=== PATIENT | male | born 1960 | race Two or more races ===

== ENCOUNTER 2020-03-10 13:59 | Inpatient (IN) | payer OTHER ==
[~2020-03-10] VITALS: Ht 170.2 cm; Wt 178.5 kg
[2020-03-10] MEDS ORDERED: ZINC SULFATE 220mg CAP or TAB PO ONE (14:30)
[2020-03-10] MEDS ORDERED: methylPREDNISolone SOD SUCC 125 MG/2 ML VL IV ONE (14:30)
[2020-03-10] MEDS ORDERED: CHOLECALCIFEROL (VITD3) 2,000 UNIT CAP PO ONE (14:30)
[2020-03-10] MEDS ORDERED: ASCORBIC ACID 500 MG TAB PO ONE (14:30)
[2020-03-10 15:16] LABS: Albumin 2.2 g/dL (3.4-5.0); Calcium 7.8 mg/dL (8.5-10.1); Potassium 3.8 mmol/L (3.5-5.1)
[2020-03-10 15:24] LABS: BUN/Creatinine Ratio 15.7; Bilirubin, Total 1.1 mg/dL (0.2-1.0); CRP High Sensitivity 11.7 mg/dL (< 0.3); Total Protein 7.6 g/dL (6.4-8.2)
[2020-03-10 15:35] LABS: Lactic Acid w/Reflex 2.3 mmol/L (0.4-2.0)
[2020-03-10 16:00] LABS: Basophils # (auto) 0 10 ^3/uL (0-0.2); Basophils % (auto) 0.2 % (0.0-2.0); Eosinophils # (auto) 0 10 ^3/uL (0-0.8); Eosinophils % (auto) 0.1 % (0.0-7.0); Hematocrit 44.8 % (41.0-53.0); Hemoglobin 15.1 g/dL (13.5-17.5); Lymphocytes # (auto) 0.8 10 ^3/uL (0.4-5.4); Lymphocytes % (auto) 10.6 % (10.0-50.0); Mean Corpuscular Hemoglobin 30.8 pg (28.0-32.0); Mean Corpuscular Hgb Conc. 33.7 g/dL (32.0-36.0); Mean Corpuscular Volume 91.3 fL (80.0-100.0); Monocytes # (auto) 0.8 10 ^3/uL (0-1.3); Monocytes % (auto) 11.6 % (0.0-12.0); Neutrophils # (auto) 5.6 10 ^3/uL (1.6-8.6); Neutrophils % (auto) 77.5 % (37.0-80.0); Nucleated Red Blood Cells % 0.5 %; Platelet Count (auto) 113 10^3/uL (140-450); Red Blood Cells 4.91 10^6/uL (4.5-5.90); White Blood Cell 7.2 10^3/uL (4.4-10.8)
[2020-03-11] MEDS ORDERED: DEXTROSE (50%) 50ML SYRG IV PRN (02:15)
[2020-03-11] MEDS ORDERED: ONDANSETRON HCL 4 MG/2 ML VIAL IV PRN (02:15)
[2020-03-11] MEDS ORDERED: DOCUSATE SOD 100 MG CAP PO PRN (02:15)
[2020-03-11] MEDS ORDERED: MORPHINE SULF INJ 2 MG/ML SYRINGE 1ML IV PRN (02:15)
[2020-03-11] MEDS ORDERED: ACETAMINOPHEN 325 MG TAB PO PRN (02:15)
[2020-03-11] MEDS ORDERED: NITROGLYCERIN 0.4 MG SL TAB SL PRN (02:15)
[2020-03-11 02:49] LABS: Hematocrit 43.9 % (41.0-53.0); Hemoglobin 14.7 g/dL (13.5-17.5); Mean Corpuscular Hemoglobin 30.6 pg (28.0-32.0); Mean Corpuscular Hgb Conc. 33.5 g/dL (32.0-36.0); Mean Corpuscular Volume 91.1 fL (80.0-100.0); Platelet Count (auto) 123 10^3/uL (140-450); Red Blood Cells 4.82 10^6/uL (4.5-5.90); Red Cell Distribution Width 15.4 % (11.8-14.3); White Blood Cell 4.6 10^3/uL (4.4-10.8)
[2020-03-11] MEDS: DOXYCYCLINE 100MG/250ML 250 ML IV SCH ×2 (02:50→21:43)
[2020-03-11 03:02] LABS: Band Neutrophils % (manual) 0; Basophils % (manual) 0 (0.0-2.0); Blast Cells 0; Eosinophils % (manual) 0 (0-7); Metamyelocytes % 0; Myelocytes % 0; Promyelocytes % 0; Reactive Lymphocytes 0
[2020-03-11 03:06] LABS: Albumin 2.1 g/dL (3.4-5.0); Calcium 7.8 mg/dL (8.5-10.1); Magnesium 2.3 mg/dL (1.6-2.6); Potassium 4.6 mmol/L (3.5-5.1)
[2020-03-11 03:09] LABS: Bilirubin, Total 0.8 mg/dL (0.2-1.0); Total Protein 7.4 g/dL (6.4-8.2)
[2020-03-11 03:42] LABS: Lymphocytes % (manual) 16 (10.0-50.0); Monocytes % (manual) 3 (0-12)
[2020-03-11] MEDS: SODIUM CHLOR 0.9% PF (SALINE LOCK) 10ML VIAL/SYR IV SCH ×3 (06:00→21:43)
[2020-03-11] MEDS: InsuLIN REG 1unit/0.01ml Soln (100units/ml) SC SCH ×4 (07:00→22:17)
[2020-03-11] MEDS: ACCU-CHEK COMFORT CURVE STRIP VI SCH ×4 (07:00→21:44)
[2020-03-11 09:17] LABS: Urine Bacteria FEW /hpf (None Seen); Urine Blood 2+ /uL (Negative); Urine Specific Gravity 1.019 (1.001-1.035); Urine WBC 47 /hpf (0 - 3)
[2020-03-11] MEDS: ASCORBIC ACID 500 MG TAB PO SCH ×2 (10:00→21:43)
[2020-03-11] MEDS ORDERED: ENOXAPARIN SOD 40 MG/0.4 ML SYRINGE SC SCH (10:00)
[2020-03-11] MEDS: FAMOTIDINE 20 MG TAB PO SCH ×2 (10:00→21:43)
[2020-03-11] MEDS: BUDESONIDE (INHALATION) 180 MCG IH IN SCH ×2 (10:00→18:44)
[2020-03-11] MEDS: MULTIPLE VITAMIN TAB PO SCH (10:00)
[2020-03-11] MEDS: ZINC SULFATE 220mg CAP or TAB PO SCH (10:00)
[2020-03-11] MEDS ORDERED: CHOLECALCIFEROL (VITD3) 2,000 UNIT CAP PO SCH (10:00)
[2020-03-11] MEDS: DexAMETHasone SOD PHOS 10MG/1ML VIAL INJ IV SCH (10:55)
[2020-03-11] MEDS ORDERED: REMDESIVIR PER PHARMACY 0 ML IV SCH (18:15)
[2020-03-11] MEDS ORDERED: ERGOCALCIFEROL 50,000 UNIT(1.25MG) CAP PO SCH (18:15)
[2020-03-11] MEDS ORDERED: POTASSIUM CHL 20 Meq TABLET PO ONE (18:15)
[2020-03-11] MEDS ORDERED: FUROSEMIDE 40 MG/4 ML VIAL IV ONE (18:15)
[2020-03-11] MEDS ORDERED: REMDESIVIR 200 MG in NS 210ml LOADING DOSE ADULT IV ONE (20:30)
[2020-03-11] MEDS: ENOXAPARIN SOD 80 MG/0.8ML SYRINGE SC SCH (21:44)
[2020-03-11] MEDS ORDERED: PIPERACILLIN-TAZOB 3.375GM 100 ML IV SCH (22:00)
[2020-03-11] MEDS: HYDROcodone-ACET 5/325MG TAB PO PRN (22:24)
[2020-03-11 23:08] VITALS: BP 118/70
[2020-03-12] VITALS: BP 131/73
[2020-03-12 00:40] VITALS: BP 131/73
[2020-03-12 01:00] VITALS: BP 131/73
[2020-03-12 01:05] VITALS: BP 142/90
[2020-03-12] MEDS: PIPERACILLIN-TAZOB 3.375GM 100 ML IV SCH ×3 (03:00→18:15)
[2020-03-12] MEDS: SODIUM CHLOR 0.9% PF (SALINE LOCK) 10ML VIAL/SYR IV SCH ×3 (06:12→21:21)
[2020-03-12] MEDS: ACCU-CHEK COMFORT CURVE STRIP VI SCH ×4 (06:13→21:26)
[2020-03-12] MEDS: InsuLIN REG 1unit/0.01ml Soln (100units/ml) SC SCH ×4 (06:30→21:19)
[2020-03-12 08:00] VITALS: BP 113/78
[2020-03-12] MEDS: DexAMETHasone SOD PHOS 10MG/1ML VIAL INJ IV SCH (09:59)
[2020-03-12] MEDS: FUROSEMIDE 40 MG/4 ML VIAL IV SCH (10:00)
[2020-03-12] MEDS: BUDESONIDE (INHALATION) 180 MCG IH IN SCH ×2 (10:19→18:55)
[2020-03-12] MEDS: DOXYCYCLINE 100MG/250ML 250 ML IV SCH ×2 (10:37→21:16)
[2020-03-12] MEDS: ZINC SULFATE 220mg CAP or TAB PO SCH (10:37)
[2020-03-12] MEDS: POTASSIUM CHL 20 Meq TABLET PO SCH (10:37)
[2020-03-12] MEDS: FAMOTIDINE 20 MG TAB PO SCH ×2 (10:38→21:04)
[2020-03-12] MEDS: MULTIPLE VITAMIN TAB PO SCH (10:38)
[2020-03-12] MEDS: ENOXAPARIN SOD 80 MG/0.8ML SYRINGE SC SCH ×2 (10:38→21:05)
[2020-03-12] MEDS: ASCORBIC ACID 500 MG TAB PO SCH ×2 (10:38→21:05)
[2020-03-12 11:32] LABS: Basophils # (auto) 0 10 ^3/uL (0-0.2); Eosinophils # (auto) 0 10 ^3/uL (0-0.8); Hematocrit 43.8 % (41.0-53.0); Hemoglobin 14.7 g/dL (13.5-17.5); Lymphocytes # (auto) 0.5 10 ^3/uL (0.4-5.4); Mean Corpuscular Hemoglobin 30.8 pg (28.0-32.0); Mean Corpuscular Hgb Conc. 33.5 g/dL (32.0-36.0); Monocytes # (auto) 0.9 10 ^3/uL (0-1.3); Monocytes % (auto) 9.1 % (0.0-12.0); Neutrophils # (auto) 8.1 10 ^3/uL (1.6-8.6); Neutrophils % (auto) 85.9 % (37.0-80.0); Nucleated Red Blood Cells % 0.3 %; Platelet Count (auto) 144 10^3/uL (140-450); Red Blood Cells 4.76 10^6/uL (4.5-5.90); Red Cell Distribution Width 15.4 % (11.8-14.3); White Blood Cell 9.4 10^3/uL (4.4-10.8)
[2020-03-12 11:49] LABS: Albumin 2.2 g/dL (3.4-5.0); Calcium 7.9 mg/dL (8.5-10.1); Potassium 4.1 mmol/L (3.5-5.1)
[2020-03-12 11:56] LABS: BUN/Creatinine Ratio 24.6; Bilirubin, Total 0.7 mg/dL (0.2-1.0); Total Protein 7.4 g/dL (6.4-8.2)
[2020-03-12] MEDS ORDERED: REMDESIVIR 200 MG in NS 210ml LOADING DOSE ADULT IV ONE (15:00)
[2020-03-12] MEDS ORDERED: REMDESIVIR 100mg 100 MG in SODIUM CHL 0.9% 230 ML IV SCH (15:00)
[2020-03-12 16:00] VITALS: BP 125/76
[2020-03-12] MEDS: ALBUTEROL SULF HFA 90MCG INH 200DOSE IN PRN (20:24)
[2020-03-12] MEDS: HYDROcodone-ACET 5/325MG TAB PO PRN (22:46)
[2020-03-13] VITALS: BP 134/81
[2020-03-13] MEDS: PIPERACILLIN-TAZOB 3.375GM 100 ML IV SCH ×3 (03:51→18:30)
[2020-03-13 05:53] LABS: Basophils # (auto) 0 10 ^3/uL (0-0.2); Basophils % (auto) 0.3 % (0.0-2.0); Eosinophils # (auto) 0 10 ^3/uL (0-0.8); Eosinophils % (auto) 0.1 % (0.0-7.0); Hemoglobin 14.9 g/dL (13.5-17.5); Lymphocytes # (auto) 0.8 10 ^3/uL (0.4-5.4); Lymphocytes % (auto) 11.4 % (10.0-50.0); Mean Corpuscular Hemoglobin 30.6 pg (28.0-32.0); Mean Corpuscular Hgb Conc. 33.1 g/dL (32.0-36.0); Mean Corpuscular Volume 92.4 fL (80.0-100.0); Monocytes # (auto) 0.9 10 ^3/uL (0-1.3); Monocytes % (auto) 12.1 % (0.0-12.0); Neutrophils # (auto) 5.5 10 ^3/uL (1.6-8.6); Neutrophils % (auto) 76.1 % (37.0-80.0); Nucleated Red Blood Cells % 0.2 %; Platelet Count (auto) 143 10^3/uL (140-450); Red Blood Cells 4.88 10^6/uL (4.5-5.90); Red Cell Distribution Width 15.3 % (11.8-14.3); White Blood Cell 7.2 10^3/uL (4.4-10.8)
[2020-03-13] MEDS: InsuLIN REG 1unit/0.01ml Soln (100units/ml) SC SCH ×4 (06:10→22:35)
[2020-03-13] MEDS: SODIUM CHLOR 0.9% PF (SALINE LOCK) 10ML VIAL/SYR IV SCH ×3 (06:11→22:05)
[2020-03-13] MEDS: ACCU-CHEK COMFORT CURVE STRIP VI SCH ×4 (06:12→22:33)
[2020-03-13 06:15] LABS: Albumin 2.1 g/dL (3.4-5.0); Calcium 7.9 mg/dL (8.5-10.1); Potassium 5.5 mmol/L (3.5-5.1)
[2020-03-13 06:19] LABS: Bilirubin, Total 0.6 mg/dL (0.2-1.0); Total Protein 7.7 g/dL (6.4-8.2)
[2020-03-13] MEDS: BUDESONIDE (INHALATION) 180 MCG IH IN SCH ×2 (07:50→18:25)
[2020-03-13] MEDS: ALBUTEROL SULF HFA 90MCG INH 200DOSE IN PRN ×2 (07:50→18:25)
[2020-03-13 08:00] VITALS: BP 120/70
[2020-03-13] MEDS: DexAMETHasone SOD PHOS 10MG/1ML VIAL INJ IV SCH (10:29)
[2020-03-13] MEDS: MULTIPLE VITAMIN TAB PO SCH (10:30)
[2020-03-13] MEDS: FUROSEMIDE 40 MG/4 ML VIAL IV SCH (10:30)
[2020-03-13] MEDS: DOXYCYCLINE 100MG/250ML 250 ML IV SCH ×2 (10:30→22:05)
[2020-03-13] MEDS: POTASSIUM CHL 20 Meq TABLET PO SCH (10:30)
[2020-03-13] MEDS: ZINC SULFATE 220mg CAP or TAB PO SCH (10:30)
[2020-03-13] MEDS: ASCORBIC ACID 500 MG TAB PO SCH ×2 (10:31→22:05)
[2020-03-13] MEDS: ENOXAPARIN SOD 80 MG/0.8ML SYRINGE SC SCH ×2 (10:31→22:06)
[2020-03-13] MEDS: FAMOTIDINE 20 MG TAB PO SCH ×2 (10:31→22:05)
[2020-03-13] MEDS: REMDESIVIR 100mg 100 MG in SODIUM CHL 0.9% 230 ML IV SCH (15:43)
[2020-03-13] MEDS: HYDROcodone-ACET 5/325MG TAB PO PRN (15:57)
[2020-03-13 16:00] VITALS: BP 121/76
[2020-03-13] MEDS: LORazepam 0.5 MG TAB PO PRN (22:09)
[2020-03-14] VITALS: BP 144/91
[2020-03-14] MEDS: PIPERACILLIN-TAZOB 3.375GM 100 ML IV SCH ×3 (03:13→18:44)
[2020-03-14 05:47] LABS: Basophils # (auto) 0 10 ^3/uL (0-0.2); Basophils % (auto) 0.1 % (0.0-2.0); Eosinophils # (auto) 0 10 ^3/uL (0-0.8); Hematocrit 44.7 % (41.0-53.0); Hemoglobin 14.8 g/dL (13.5-17.5); Lymphocytes # (auto) 0.8 10 ^3/uL (0.4-5.4); Lymphocytes % (auto) 12.6 % (10.0-50.0); Mean Corpuscular Hemoglobin 30.4 pg (28.0-32.0); Mean Corpuscular Hgb Conc. 33.2 g/dL (32.0-36.0); Mean Corpuscular Volume 91.5 fL (80.0-100.0); Monocytes # (auto) 0.9 10 ^3/uL (0-1.3); Monocytes % (auto) 14.4 % (0.0-12.0); Neutrophils # (auto) 4.7 10 ^3/uL (1.6-8.6); Neutrophils % (auto) 72.9 % (37.0-80.0); Nucleated Red Blood Cells % 0.2 %; Platelet Count (auto) 153 10^3/uL (140-450); Red Blood Cells 4.88 10^6/uL (4.5-5.90); White Blood Cell 6.4 10^3/uL (4.4-10.8)
[2020-03-14] MEDS: SODIUM CHLOR 0.9% PF (SALINE LOCK) 10ML VIAL/SYR IV SCH ×3 (06:15→21:55)
[2020-03-14 06:19] LABS: Potassium 4.2 mmol/L (3.5-5.1)
[2020-03-14] MEDS: BUDESONIDE (INHALATION) 180 MCG IH IN SCH ×2 (06:33→18:42)
[2020-03-14 06:37] LABS: Albumin 2.3 g/dL (3.4-5.0); BUN/Creatinine Ratio 25.9; Bilirubin, Total 0.9 mg/dL (0.2-1.0); Calcium 7.6 mg/dL (8.5-10.1); Total Protein 7.4 g/dL (6.4-8.2)
[2020-03-14] MEDS: InsuLIN REG 1unit/0.01ml Soln (100units/ml) SC SCH ×4 (06:43→22:14)
[2020-03-14] MEDS: ACCU-CHEK COMFORT CURVE STRIP VI SCH ×4 (06:43→22:04)
[2020-03-14 08:00] VITALS: BP 124/78
[2020-03-14] MEDS: DOXYCYCLINE 100MG/250ML 250 ML IV SCH ×2 (09:56→21:56)
[2020-03-14] MEDS: DexAMETHasone SOD PHOS 10MG/1ML VIAL INJ IV SCH (09:56)
[2020-03-14] MEDS: FUROSEMIDE 40 MG/4 ML VIAL IV SCH (09:56)
[2020-03-14] MEDS: ASCORBIC ACID 500 MG TAB PO SCH ×2 (09:57→21:55)
[2020-03-14] MEDS: ENOXAPARIN SOD 80 MG/0.8ML SYRINGE SC SCH ×2 (09:57→21:55)
[2020-03-14] MEDS: ZINC SULFATE 220mg CAP or TAB PO SCH (09:57)
[2020-03-14] MEDS: MULTIPLE VITAMIN TAB PO SCH (09:57)
[2020-03-14] MEDS: FAMOTIDINE 20 MG TAB PO SCH ×2 (12:30→21:55)
[2020-03-14] MEDS: SALINE 0.65 % NASAL SPRAY 45ML BOTTLE EACHNOSTRI SCH ×3 (14:29→21:55)
[2020-03-14 16:00] VITALS: BP 123/75
[2020-03-14] MEDS: REMDESIVIR 100mg 100 MG in SODIUM CHL 0.9% 230 ML IV SCH (16:17)
[2020-03-14] MEDS: ALBUTEROL SULF HFA 90MCG INH 200DOSE IN PRN (18:42)
[2020-03-14] MEDS: ZOLPIDEM TARTRATE 5 MG TAB PO PRN (21:55)
[2020-03-15] VITALS: BP 154/79
[2020-03-15] MEDS: PIPERACILLIN-TAZOB 3.375GM 100 ML IV SCH (03:38)
[2020-03-15] MEDS: SODIUM CHLOR 0.9% PF (SALINE LOCK) 10ML VIAL/SYR IV SCH ×3 (06:12→21:14)
[2020-03-15] MEDS: ACCU-CHEK COMFORT CURVE STRIP VI SCH ×4 (06:12→21:14)
[2020-03-15] MEDS: SALINE 0.65 % NASAL SPRAY 45ML BOTTLE EACHNOSTRI SCH ×4 (06:12→21:13)
[2020-03-15] MEDS: InsuLIN REG 1unit/0.01ml Soln (100units/ml) SC SCH ×5 (06:13→21:24)
[2020-03-15] MEDS: ALBUTEROL SULF HFA 90MCG INH 200DOSE IN PRN ×2 (07:10→18:52)
[2020-03-15] MEDS: BUDESONIDE (INHALATION) 180 MCG IH IN SCH ×2 (07:10→18:52)
[2020-03-15 08:00] VITALS: BP 138/80
[2020-03-15 09:00] LABS: Basophils # (auto) 0 10 ^3/uL (0-0.2); Basophils % (auto) 0.4 % (0.0-2.0); Eosinophils # (auto) 0 10 ^3/uL (0-0.8); Hematocrit 45.8 % (41.0-53.0); Hemoglobin 15.2 g/dL (13.5-17.5); Lymphocytes # (auto) 0.9 10 ^3/uL (0.4-5.4); Lymphocytes % (auto) 13.3 % (10.0-50.0); Mean Corpuscular Hemoglobin 30.5 pg (28.0-32.0); Mean Corpuscular Hgb Conc. 33.2 g/dL (32.0-36.0); Monocytes # (auto) 0.8 10 ^3/uL (0-1.3); Monocytes % (auto) 12.3 % (0.0-12.0); Nucleated Red Blood Cells % 0.2 %; Platelet Count (auto) 142 10^3/uL (140-450); Red Blood Cells 4.98 10^6/uL (4.5-5.90); Red Cell Distribution Width 15.4 % (11.8-14.3); White Blood Cell 6.8 10^3/uL (4.4-10.8)
[2020-03-15 09:19] LABS: Albumin 2.2 g/dL (3.4-5.0); Calcium 7.8 mg/dL (8.5-10.1)
[2020-03-15 09:28] LABS: BUN/Creatinine Ratio 23.9; Bilirubin, Total 0.9 mg/dL (0.2-1.0); CRP High Sensitivity 1.68 mg/dL (< 0.3); Total Protein 7.4 g/dL (6.4-8.2)
[2020-03-15] MEDS: FAMOTIDINE 20 MG TAB PO SCH ×2 (10:00→21:14)
[2020-03-15] MEDS: ZINC SULFATE 220mg CAP or TAB PO SCH (10:23)
[2020-03-15] MEDS: FUROSEMIDE 40 MG/4 ML VIAL IV SCH (10:23)
[2020-03-15] MEDS: DOXYCYCLINE 100MG/250ML 250 ML IV SCH (10:23)
[2020-03-15] MEDS: DexAMETHasone SOD PHOS 10MG/1ML VIAL INJ IV SCH (10:23)
[2020-03-15] MEDS: ASCORBIC ACID 500 MG TAB PO SCH ×2 (10:24→21:13)
[2020-03-15] MEDS: ENOXAPARIN SOD 80 MG/0.8ML SYRINGE SC SCH ×2 (10:24→21:12)
[2020-03-15] MEDS: MULTIPLE VITAMIN TAB PO SCH (10:24)
[2020-03-15] MEDS: REMDESIVIR 100mg 100 MG in SODIUM CHL 0.9% 230 ML IV SCH (15:34)
[2020-03-15 16:00] VITALS: BP 123/77
[2020-03-15] MEDS: ZOLPIDEM TARTRATE 5 MG TAB PO PRN (21:13)
[2020-03-15] MEDS: DOXYCYCLINE 100 MG TAB/CAP PO SCH (21:14)
[2020-03-15] MEDS ORDERED: AMOXICILLIN/CLAVUL 875 MG TAB PO SCH (22:00)
[2020-03-16] VITALS: BP 134/75
[2020-03-16] MEDS: SODIUM CHLOR 0.9% PF (SALINE LOCK) 10ML VIAL/SYR IV SCH ×3 (06:05→21:49)
[2020-03-16] MEDS: SALINE 0.65 % NASAL SPRAY 45ML BOTTLE EACHNOSTRI SCH ×4 (06:05→21:49)
[2020-03-16] MEDS: ACCU-CHEK COMFORT CURVE STRIP VI SCH ×4 (06:05→21:50)
[2020-03-16] MEDS: BUDESONIDE (INHALATION) 180 MCG IH IN SCH ×2 (06:44→22:34)
[2020-03-16] MEDS: ALBUTEROL SULF HFA 90MCG INH 200DOSE IN PRN ×2 (06:44→22:34)
[2020-03-16 07:10] LABS: Basophils # (auto) 0 10 ^3/uL (0-0.2); Basophils % (auto) 0.4 % (0.0-2.0); Eosinophils # (auto) 0 10 ^3/uL (0-0.8); Lymphocytes # (auto) 0.9 10 ^3/uL (0.4-5.4); Lymphocytes % (auto) 11.8 % (10.0-50.0); Mean Corpuscular Hemoglobin 30.9 pg (28.0-32.0); Mean Corpuscular Volume 90.9 fL (80.0-100.0); Monocytes # (auto) 0.8 10 ^3/uL (0-1.3); Monocytes % (auto) 9.8 % (0.0-12.0); Neutrophils # (auto) 6.2 10 ^3/uL (1.6-8.6); Nucleated Red Blood Cells % 0.1 %; Platelet Count (auto) 140 10^3/uL (140-450); Red Blood Cells 4.85 10^6/uL (4.5-5.90); Red Cell Distribution Width 15.1 % (11.8-14.3); White Blood Cell 7.9 10^3/uL (4.4-10.8)
[2020-03-16 07:31] LABS: Potassium 4.1 mmol/L (3.5-5.1)
[2020-03-16 07:40] LABS: Albumin 2.3 g/dL (3.4-5.0); BUN/Creatinine Ratio 28.7; Bilirubin, Total 0.7 mg/dL (0.2-1.0); Calcium 7.8 mg/dL (8.5-10.1)
[2020-03-16 08:00] VITALS: BP 119/79
[2020-03-16] MEDS: DexAMETHasone SOD PHOS 10MG/1ML VIAL INJ IV SCH (09:14)
[2020-03-16] MEDS: MULTIPLE VITAMIN TAB PO SCH (09:15)
[2020-03-16] MEDS: ZINC SULFATE 220mg CAP or TAB PO SCH (09:15)
[2020-03-16] MEDS: FUROSEMIDE 40 MG/4 ML VIAL IV SCH (09:15)
[2020-03-16] MEDS: FAMOTIDINE 20 MG TAB PO SCH ×2 (09:15→21:49)
[2020-03-16] MEDS: ASCORBIC ACID 500 MG TAB PO SCH ×2 (09:16→21:49)
[2020-03-16] MEDS: ENOXAPARIN SOD 80 MG/0.8ML SYRINGE SC SCH ×2 (09:16→21:50)
[2020-03-16] MEDS: DOXYCYCLINE 100 MG TAB/CAP PO SCH ×2 (09:16→21:49)
[2020-03-16] MEDS: InsuLIN REG 1unit/0.01ml Soln (100units/ml) SC SCH ×3 (11:27→22:04)
[2020-03-16 15:00] VITALS: BP 127/70
[2020-03-16] MEDS: REMDESIVIR 100mg 100 MG in SODIUM CHL 0.9% 230 ML IV SCH (15:00)
[2020-03-16 15:15] VITALS: BP 103/58
[2020-03-16 16:00] VITALS: BP 102/74
[2020-03-16] MEDS: ZOLPIDEM TARTRATE 5 MG TAB PO PRN (22:01)
[2020-03-17] VITALS: BP 111/58
[2020-03-17] MEDS: SODIUM CHLOR 0.9% PF (SALINE LOCK) 10ML VIAL/SYR IV SCH ×3 (06:00→21:39)
[2020-03-17] MEDS: SALINE 0.65 % NASAL SPRAY 45ML BOTTLE EACHNOSTRI SCH ×4 (06:00→21:39)
[2020-03-17] MEDS: BUDESONIDE (INHALATION) 180 MCG IH IN SCH ×2 (06:26→21:37)
[2020-03-17] MEDS: ALBUTEROL SULF HFA 90MCG INH 200DOSE IN PRN ×2 (06:26→21:37)
[2020-03-17] MEDS: ACCU-CHEK COMFORT CURVE STRIP VI SCH ×4 (06:53→21:39)
[2020-03-17 06:54] LABS: Basophils # (auto) 0 10 ^3/uL (0-0.2); Basophils % (auto) 0.1 % (0.0-2.0); Eosinophils # (auto) 0 10 ^3/uL (0-0.8); Eosinophils % (auto) 0.1 % (0.0-7.0); Hematocrit 44.4 % (41.0-53.0); Hemoglobin 14.9 g/dL (13.5-17.5); Lymphocytes # (auto) 0.9 10 ^3/uL (0.4-5.4); Mean Corpuscular Hemoglobin 30.6 pg (28.0-32.0); Mean Corpuscular Hgb Conc. 33.5 g/dL (32.0-36.0); Mean Corpuscular Volume 91.2 fL (80.0-100.0); Monocytes # (auto) 0.9 10 ^3/uL (0-1.3); Monocytes % (auto) 11.2 % (0.0-12.0); Neutrophils # (auto) 6.5 10 ^3/uL (1.6-8.6); Neutrophils % (auto) 77.6 % (37.0-80.0); Nucleated Red Blood Cells % 0.1 %; Platelet Count (auto) 137 10^3/uL (140-450); Red Blood Cells 4.87 10^6/uL (4.5-5.90); Red Cell Distribution Width 14.8 % (11.8-14.3); White Blood Cell 8.4 10^3/uL (4.4-10.8)
[2020-03-17] MEDS: InsuLIN REG 1unit/0.01ml Soln (100units/ml) SC SCH ×4 (06:54→22:07)
[2020-03-17 07:58] VITALS: BP 114/72
[2020-03-17] MEDS: ASCORBIC ACID 500 MG TAB PO SCH ×2 (09:50→21:39)
[2020-03-17] MEDS: MULTIPLE VITAMIN TAB PO SCH (09:50)
[2020-03-17] MEDS: ZINC SULFATE 220mg CAP or TAB PO SCH (09:50)
[2020-03-17] MEDS: DOXYCYCLINE 100 MG TAB/CAP PO SCH ×2 (09:50→21:39)
[2020-03-17] MEDS: ENOXAPARIN SOD 80 MG/0.8ML SYRINGE SC SCH ×2 (09:51→21:40)
[2020-03-17] MEDS: DexAMETHasone SOD PHOS 10MG/1ML VIAL INJ IV SCH (09:51)
[2020-03-17] MEDS: FAMOTIDINE 20 MG TAB PO SCH ×2 (09:51→21:39)
[2020-03-17] MEDS: FUROSEMIDE 40 MG/4 ML VIAL IV SCH (09:51)
[2020-03-17 15:53] VITALS: BP 114/67
[2020-03-17] MEDS: LORazepam 0.5 MG TAB PO PRN (21:40)
[2020-03-18] VITALS: BP 127/60
[2020-03-18] MEDS: InsuLIN REG 1unit/0.01ml Soln (100units/ml) SC SCH ×3 (05:54→16:43)
[2020-03-18 06:00] VITALS: BP 109/46
[2020-03-18] MEDS: SALINE 0.65 % NASAL SPRAY 45ML BOTTLE EACHNOSTRI SCH ×3 (06:09→17:20)
[2020-03-18] MEDS: SODIUM CHLOR 0.9% PF (SALINE LOCK) 10ML VIAL/SYR IV SCH ×2 (06:09→13:41)
[2020-03-18] MEDS: ACCU-CHEK COMFORT CURVE STRIP VI SCH ×3 (06:09→16:41)
[2020-03-18 06:20] LABS: Basophils # (auto) 0 10 ^3/uL (0-0.2); Basophils % (auto) 0.2 % (0.0-2.0); Eosinophils # (auto) 0 10 ^3/uL (0-0.8); Eosinophils % (auto) 0.1 % (0.0-7.0); Lymphocytes # (auto) 0.7 10 ^3/uL (0.4-5.4); Lymphocytes % (auto) 9.4 % (10.0-50.0); Mean Corpuscular Hemoglobin 30.4 pg (28.0-32.0); Mean Corpuscular Hgb Conc. 33.2 g/dL (32.0-36.0); Mean Corpuscular Volume 91.4 fL (80.0-100.0); Monocytes # (auto) 0.7 10 ^3/uL (0-1.3); Monocytes % (auto) 10.1 % (0.0-12.0); Neutrophils # (auto) 5.9 10 ^3/uL (1.6-8.6); Neutrophils % (auto) 80.2 % (37.0-80.0); Nucleated Red Blood Cells % 0.1 %; Platelet Count (auto) 122 10^3/uL (140-450); Red Blood Cells 4.92 10^6/uL (4.5-5.90); Red Cell Distribution Width 15.4 % (11.8-14.3); White Blood Cell 7.3 10^3/uL (4.4-10.8)
[2020-03-18 08:00] VITALS: BP 109/46
[2020-03-18] MEDS: ASCORBIC ACID 500 MG TAB PO SCH (09:28)
[2020-03-18] MEDS: MULTIPLE VITAMIN TAB PO SCH (09:28)
[2020-03-18] MEDS: DOXYCYCLINE 100 MG TAB/CAP PO SCH (09:28)
[2020-03-18] MEDS: ZINC SULFATE 220mg CAP or TAB PO SCH (09:28)
[2020-03-18] MEDS: FUROSEMIDE 40 MG/4 ML VIAL IV SCH (09:29)
[2020-03-18] MEDS: FAMOTIDINE 20 MG TAB PO SCH (09:29)
[2020-03-18] MEDS: ENOXAPARIN SOD 80 MG/0.8ML SYRINGE SC SCH (09:29)
[2020-03-18] MEDS: DexAMETHasone SOD PHOS 10MG/1ML VIAL INJ IV SCH (09:29)
[2020-03-18] MEDS: ALBUTEROL SULF HFA 90MCG INH 200DOSE IN PRN (10:25)
[2020-03-18] MEDS: BUDESONIDE (INHALATION) 180 MCG IH IN SCH (10:25)
[2020-03-18 14:17] VITALS: BP 109/46
[2020-03-18 16:00] VITALS: BP 116/71
== END 2020-03-18 17:55 | disposition home or self-care (01) | DRG 871 ==
LOC: EDBD 13:59 → ER 13:59 → TELE 14:00 → TELE-EAST 03-11 23:57
PROVIDERS: ADMIT Nurse Practitioner Family; ATTEND Internal Medicine Nephrology
PROC: XW13325 Transfusion of Convalescent Plasma (Nonautologous) into Peripheral Vein, Percutaneous Approach, New Technology Group 5 (ICD-10-PCS; principal; 2020-03-11)
PROC: XW033E5 Introduction of Remdesivir Anti-infective into Peripheral Vein, Percutaneous Approach, New Technology Group 5 (ICD-10-PCS; 2020-03-11)
DX: A41.89 Other specified sepsis (principal); J12.82 Pneumonia due to coronavirus disease 2019; J96.01 Acute respiratory failure with hypoxia; U07.1 COVID-19; Z68.44 Body mass index [BMI] 60.0-69.9, adult; D69.6 Thrombocytopenia, unspecified; E11.22 Type 2 diabetes mellitus with diabetic chronic kidney disease; E66.01 Morbid (severe) obesity due to excess calories; E87.5 Hyperkalemia; F17.210 Nicotine dependence, cigarettes, uncomplicated; F41.9 Anxiety disorder, unspecified; I12.9 Hypertensive chronic kidney disease with stage 1 through stage 4 chronic kidney disease, or unspecified chronic kidney disease; N18.2 Chronic kidney disease, stage 2 (mild); R65.20 Severe sepsis without septic shock
CPT/HCPCS: 36415; 36600; 71045; 80053; 81001; 82306; 82728; 82805; 82962; 83036; 83605; 83615; 83735; 83880; 85007; 85025; 85027; 85379; 86141; 86850; 86900; 86901; 87040; 87426; 93005; 93970; 94640; 96374; 99291; G0378; J1100; J1815; J2543; J3490

== ENCOUNTER 2020-12-08 17:08 | Emergency (ER) | payer OTHER ==
[~2020-12-08] VITALS: Ht 177.8 cm; Wt 172.4 kg
[2020-12-08 17:45] VITALS: BP 165/88
== END 2020-12-08 18:59 | disposition home or self-care (01) ==
LOC: ER 17:08
DX: L03.116 Cellulitis of left lower limb (principal); E11.9 Type 2 diabetes mellitus without complications; F17.210 Nicotine dependence, cigarettes, uncomplicated
CPT/HCPCS: 73700

== ENCOUNTER 2021-01-19 21:24 | Emergency (ER) | payer OTHER ==
[~2021-01-19] VITALS: Ht 177.8 cm; Wt 170.1 kg
[2021-01-19] MEDS ORDERED: LIDOCAINE 2% (LOCAL ANESTH.) PF 5ml SDV IJ ONE (23:45)
[2021-01-19] MEDS ORDERED: cefTRIAXone SOD 1,000 MG VL IM ONE (23:45)
[2021-01-19] MEDS ORDERED: NEOMYCIN-BACITRACIN-POLYM UNITDOSE PKG TOP OINT TOP ONE (23:45)
[2021-01-19] MEDS ORDERED: TETANUS-DIPTH-ACEL PERTUSSIS 0.5ML SYR Tdap IM ONE (23:45)
[2021-01-20] MEDS ORDERED: MORPHINE SULFATE 4 MG/ML SYR/VIAL IV ONE (00:15)
[2021-01-20] MEDS ORDERED: cefTRIAXone 1GM/50ML D5W 50 ML IV ONE ×2 (00:15→01:15)
[2021-01-20] MEDS ORDERED: NEOMYCIN-BACITRACIN-POLYM UNITDOSE PKG TOP OINT TOP ONE (01:00)
[2021-01-20 01:52] VITALS: BP 173/82
== END 2021-01-20 02:50 | disposition home or self-care (01) ==
LOC: EDBD 21:24 → ER 21:24
DX: S81.812A Laceration without foreign body, left lower leg, initial encounter (principal); E66.9 Obesity, unspecified; Z68.43 Body mass index [BMI] 50.0-59.9, adult; E11.9 Type 2 diabetes mellitus without complications; F17.210 Nicotine dependence, cigarettes, uncomplicated; W26.8XXA Contact with other sharp object(s), not elsewhere classified, initial encounter; Y93.89 Activity, other specified; Y92.89 Other specified places as the place of occurrence of the external cause; Y99.8 Other external cause status
CPT/HCPCS: 12005; 90471; 90715; 96365; 96375; 99284; J0696; J2270

== ENCOUNTER → 2021-10-26 | Outpatient (CLI) | payer MEDICAID ==
[~2021-10-26] MED LIST: ALBUTEROL SULF 2.5 MG/0.5ML(0.5%) NEB SOLN ONE; SODIUM CHLORIDE 0.9 % NEB SOLN 3ML NEB ONE
== END | disposition home or self-care (01) ==
LOC: RT 10:44
PROVIDERS: ATTEND Internal Medicine Pulmonary Disease
DX: J44.9 Chronic obstructive pulmonary disease, unspecified (principal)
CPT/HCPCS: 94060; 94727; 94729

== ENCOUNTER 2022-01-15 05:35 | Inpatient (IN) | payer MEDICAID ==
[~2022-01-15] VITALS: Ht 172.7 cm; Wt 172.5 kg
[2022-01-15] MEDS ORDERED: ADENOSINE 6 MG/2 ML INJ IV ONE ×2 (06:17→06:30)
[2022-01-15 07:08] LABS: Basophils # (auto) 0.1 10 ^3/uL (0-0.2); Basophils % (auto) 1.2 % (0.0-2.0); White Blood Cell 11.3 10^3/uL (4.4-10.8)
[2022-01-15 07:09] LABS: Eosinophils # (auto) 0.1 10 ^3/uL (0-0.8); Hematocrit 26.9 % (41.0-53.0); Lymphocytes # (auto) 1.6 10 ^3/uL (0.4-5.4); Lymphocytes % (auto) 13.7 % (10.0-50.0); Mean Corpuscular Hemoglobin 20.4 pg (28.0-32.0); Mean Corpuscular Hgb Conc. 29.9 g/dL (32.0-36.0); Mean Corpuscular Volume 68.2 fL (80.0-100.0); Monocytes # (auto) 1.5 10 ^3/uL (0-1.3); Monocytes % (auto) 12.8 % (0.0-12.0); Neutrophils # (auto) 8.1 10 ^3/uL (1.6-8.6); Neutrophils % (auto) 71.3 % (37.0-80.0); Nucleated Red Blood Cells % 0.5 %; Red Blood Cells 3.94 10^6/uL (4.5-5.90)
[2022-01-15 07:14] LABS: Red Cell Distribution Width 20.9 % (11.8-14.3)
[2022-01-15 07:45] LABS: Potassium 4.4 mmol/L (3.5-5.1)
[2022-01-15 07:53] LABS: Albumin 2.3 g/dL (3.4-5.0); Bilirubin, Total 1.5 mg/dL (0.2-1.0); Calcium 8.1 mg/dL (8.5-10.1); Magnesium 1.7 mg/dL (1.6-2.6); Total Protein 7.2 g/dL (6.4-8.2)
[2022-01-15] MEDS ORDERED: ASPirin 81 mg TAB PO ONE (08:00)
[2022-01-15] MEDS ORDERED: MORPHINE SULFATE INJ 2 MG/ml SYRG IV PRN (09:00)
[2022-01-15] MEDS ORDERED: NITROGLYCERIN 0.4 MG SL TAB SL PRN (09:00)
[2022-01-15] MEDS ORDERED: NITROGLYCERIN 0.4MG/HR TOPICAL PATCH TD ONE (09:15)
[2022-01-15] MEDS ORDERED: cefTRIAXone 1GM/50ML D5W 50 ML IV ONE (09:30)
[2022-01-15] MEDS ORDERED: DEXTROSE (50%) 50ML SYRG IV PRN (09:30)
[2022-01-15 09:57] LABS: Cholesterol 79 mg/dL (< 200); HDL Cholesterol 33 mg/dL (40-59); LDL Cholesterol 43 mg/dL (< 100); Triglycerides 82 mg/dL (< 150)
[2022-01-15] MEDS ORDERED: FUROSEMIDE 20 MG/2 ML VIAL IV SCH (10:00)
[2022-01-15] MEDS ORDERED: ENOXAPARIN SOD 150 MG/1 ML SYRINGE SC SCH (10:00)
[2022-01-15] MEDS: FUROSEMIDE 20 MG/2 ML VIAL IV SCH ×2 (10:21→18:49)
[2022-01-15 10:56] LABS: Urine Bacteria NONE SEEN /hpf (None Seen); Urine Blood 1+ /uL (Negative); Urine Hyaline Cast FEW /lpf (0 - 2); Urine Mucus FEW (None Seen); Urine Specific Gravity 1.013 (1.001-1.035); Urine WBC 3 /hpf (0 - 3)
[2022-01-15] MEDS: ACCU-CHEK COMFORT CURVE STRIP VI SCH ×3 (12:05→23:23)
[2022-01-15] MEDS: InsuLIN REG 1unit/0.01ml Soln (100units/ml) SC SCH ×3 (12:05→23:23)
[2022-01-15] MEDS: CLINDAMYCIN 600MG IV 50 ML IV SCH ×2 (14:49→23:22)
[2022-01-15] MEDS ORDERED: HEPARIN SODIUM (PORCINE) 5000 UNITS/ML 1ML VIAL IV ONE (15:30)
[2022-01-15] MEDS: METOPROLOL TARTRATE 25 MG TAB PO SCH ×2 (16:01→23:22)
[2022-01-15] MEDS: NITROGLYCERIN 0.4MG/HR TOPICAL PATCH TD SCH (16:33)
[2022-01-15 16:52] LABS: Basophils # (auto) 0.1 10 ^3/uL (0-0.2); Basophils % (auto) 0.9 % (0.0-2.0); Eosinophils # (auto) 0.1 10 ^3/uL (0-0.8); Hemoglobin 7.5 g/dL (13.5-17.5); Lymphocytes # (auto) 1.4 10 ^3/uL (0.4-5.4); Mean Corpuscular Hemoglobin 19.9 pg (28.0-32.0); Neutrophils # (auto) 8.5 10 ^3/uL (1.6-8.6); Red Blood Cells 3.75 10^6/uL (4.5-5.90)
[2022-01-15 16:54] LABS: Eosinophils % (auto) 0.5 % (0.0-7.0); Hematocrit 25.5 % (41.0-53.0); Lymphocytes % (auto) 11.6 % (10.0-50.0); Mean Corpuscular Hgb Conc. 29.3 g/dL (32.0-36.0); Monocytes % (auto) 16.3 % (0.0-12.0); Neutrophils % (auto) 70.7 % (37.0-80.0); Nucleated Red Blood Cells % 0.3 %
[2022-01-15 16:55] LABS: Red Cell Distribution Width 20.5 % (11.8-14.3)
[2022-01-15 17:28] LABS: INR 1.33 (0.9-1.15); Partial Thromboplastin Time 35.3 sec (24.6-33.4)
[2022-01-15] MEDS ORDERED: HEPARIN DRIP/D5W 100UNITS/ML 250 ML IV SCH (22:00)
[2022-01-15] MEDS ORDERED: ATORVASTATIN 20 MG TAB PO SCH (22:00)
[2022-01-16 03:39] LABS: Basophils # (auto) 0.1 10 ^3/uL (0-0.2); Eosinophils # (auto) 0.3 10 ^3/uL (0-0.8); Mean Corpuscular Volume 67.3 fL (80.0-100.0); Monocytes # (auto) 2.2 10 ^3/uL (0-1.3); Nucleated Red Blood Cells % 0.2 %
[2022-01-16 03:41] LABS: Eosinophils % (auto) 2.4 % (0.0-7.0); Hematocrit 25.9 % (41.0-53.0); Hemoglobin 7.7 g/dL (13.5-17.5); Lymphocytes # (auto) 2.2 10 ^3/uL (0.4-5.4); Lymphocytes % (auto) 18.3 % (10.0-50.0); Mean Corpuscular Hgb Conc. 29.8 g/dL (32.0-36.0); Neutrophils # (auto) 7.4 10 ^3/uL (1.6-8.6); Neutrophils % (auto) 60.2 % (37.0-80.0); Red Blood Cells 3.84 10^6/uL (4.5-5.90); White Blood Cell 12.3 10^3/uL (4.4-10.8)
[2022-01-16 03:50] LABS: Monocytes % (auto) 18.1 % (0.0-12.0); Red Cell Distribution Width 20.7 % (11.8-14.3)
[2022-01-16 03:57] LABS: Albumin 2.1 g/dL (3.4-5.0); BUN/Creatinine Ratio 11.2; Calcium 7.6 mg/dL (8.5-10.1); Potassium 3.5 mmol/L (3.5-5.1)
[2022-01-16 04:00] LABS: Total Protein 6.8 g/dL (6.4-8.2)
[2022-01-16 04:27] LABS: INR 1.03 (0.9-1.15)
[2022-01-16 04:36] LABS: Partial Thromboplastin Time > 139.0 sec (24.6-33.4)
[2022-01-16] MEDS ORDERED: HEPARIN DRIP/D5W 100UNITS/ML 250 ML IV SCH (06:00)
[2022-01-16] MEDS: CLINDAMYCIN 600MG IV 50 ML IV SCH (06:43)
[2022-01-16] MEDS: FUROSEMIDE 20 MG/2 ML VIAL IV SCH ×2 (06:43→18:14)
[2022-01-16] MEDS: ACCU-CHEK COMFORT CURVE STRIP VI SCH ×3 (06:49→17:23)
[2022-01-16] MEDS: InsuLIN REG 1unit/0.01ml Soln (100units/ml) SC SCH ×3 (06:49→17:00)
[2022-01-16] MEDS ORDERED: cefTRIAXone 1GM/50ML D5W 50 ML IV SCH (09:00)
[2022-01-16] MEDS: METOPROLOL TARTRATE 25 MG TAB PO SCH (09:53)
[2022-01-16] MEDS ORDERED: ASPirin 81 mg TAB PO SCH (10:00)
[2022-01-16] MEDS: NITROGLYCERIN 0.4MG/HR TOPICAL PATCH TD SCH (10:26)
[2022-01-16 12:30] LABS: INR 1.3 (0.9-1.15); Partial Thromboplastin Time 35.7 sec (24.6-33.4)
[2022-01-16 20:20] VITALS: BP 110/77
[2022-01-16] MEDS ORDERED: ENOXAPARIN SOD 150 MG/1 ML SYRINGE SC SCH (22:00)
== END 2022-01-16 20:26 | disposition short-term general hospital (02) | DRG 720 ==
LOC: ER 05:35 → TELE 09:02
PROVIDERS: ADMIT Registered Nurse; ATTEND Nurse Practitioner Acute Care
DX: A41.9 Sepsis, unspecified organism (principal); I21.4 Non-ST elevation (NSTEMI) myocardial infarction; E43 Unspecified severe protein-calorie malnutrition; I13.0 Hypertensive heart and chronic kidney disease with heart failure and stage 1 through stage 4 chronic kidney disease, or unspecified chronic kidney disease; I50.9 Heart failure, unspecified; I47.1 Supraventricular tachycardia; E11.22 Type 2 diabetes mellitus with diabetic chronic kidney disease; D64.9 Anemia, unspecified; Z68.43 Body mass index [BMI] 50.0-59.9, adult; L97.509 Non-pressure chronic ulcer of other part of unspecified foot with unspecified severity; D72.829 Elevated white blood cell count, unspecified; E11.51 Type 2 diabetes mellitus with diabetic peripheral angiopathy without gangrene; E66.01 Morbid (severe) obesity due to excess calories; Z20.822 Contact with and (suspected) exposure to COVID-19; E11.621 Type 2 diabetes mellitus with foot ulcer; E78.5 Hyperlipidemia, unspecified; N18.9 Chronic kidney disease, unspecified; I87.8 Other specified disorders of veins
CPT/HCPCS: 36415; 71045; 80053; 80061; 81001; 82962; 83036; 83735; 83880; 84443; 84484; 85025; 85379; 85610; 85730; 86850; 86900; 86901; 87040; 87077; 87186; 87205; 87426; 93005; 93306; 93925; 93970; 96365; 96367; 96372; 96375; 99291; G0378; J0153; J0696; J3490

== ENCOUNTER → 2022-05-29 | Outpatient (CLI) | payer MEDICAID | END | disposition home or self-care (01) | LOC: Rad HDHVI 09:00 | PROVIDERS: ATTEND Internal Medicine | DX: I11.9 Hypertensive heart disease without heart failure (principal); E78.5 Hyperlipidemia, unspecified | CPT/HCPCS: 93306 ==

== ENCOUNTER 2022-09-30 00:23 | Emergency (ER) | payer MEDICAID ==
[~2022-09-30] VITALS: Ht 175.3 cm; Wt 145.0 kg
[2022-09-30 00:26] VITALS: BP 122/68; PULSE 111; RESP 18; O2SAT 97
== END 2022-09-30 07:19 | disposition home or self-care (01) ==
LOC: ER 00:23
DX: F10.129 Alcohol abuse with intoxication, unspecified (principal); E66.9 Obesity, unspecified; I10 Essential (primary) hypertension; E11.9 Type 2 diabetes mellitus without complications; E78.5 Hyperlipidemia, unspecified; Z68.42 Body mass index [BMI] 45.0-49.9, adult; Y90.9 Presence of alcohol in blood, level not specified

== ENCOUNTER 2022-10-01 19:12 | Emergency (ER) | payer MEDICAID ==
[~2022-10-01] VITALS: Ht 177.8 cm; Wt 127.0 kg
[2022-10-01] MEDS ORDERED: ASPirin 81 mg TAB PO ONE (19:30)
[2022-10-01 19:41] LABS: Basophils # (auto) 0.1 10 ^3/uL (0-0.2); Basophils % (auto) 1.7 % (0.0-2.0); Eosinophils # (auto) 0 10 ^3/uL (0-0.8); Eosinophils % (auto) 0.4 % (0.0-7.0); Hematocrit 32.1 % (41.0-53.0); Hemoglobin 10.1 g/dL (13.5-17.5); Lymphocytes % (auto) 48.8 % (10.0-50.0); Mean Corpuscular Hemoglobin 22.4 pg (28.0-32.0); Mean Corpuscular Hgb Conc. 31.4 g/dL (32.0-36.0); Mean Corpuscular Volume 71.5 fL (80.0-100.0); Monocytes # (auto) 0.5 10 ^3/uL (0-1.3); Monocytes % (auto) 8.7 % (0.0-12.0); Neutrophils # (auto) 2.4 10 ^3/uL (1.6-8.6); Neutrophils % (auto) 40.4 % (37.0-80.0); Nucleated Red Blood Cells % 0.2 %; Red Blood Cells 4.49 10^6/uL (4.5-5.90); White Blood Cell 6.1 10^3/uL (4.4-10.8)
[2022-10-01 19:42] LABS: Red Cell Distribution Width 21.6 % (11.8-14.3)
[2022-10-01 19:56] LABS: INR 1.39 (0.9-1.15); Partial Thromboplastin Time 31.9 SEC (24.5-34.5)
[2022-10-01 20:07] LABS: Albumin 2.9 g/dL (3.4-5.0); Calcium 8.1 mg/dL (8.5-10.1); Magnesium 2.2 mg/dL (1.6-2.6); Potassium 3.9 mmol/L (3.5-5.1)
[2022-10-01 20:13] LABS: BUN/Creatinine Ratio 12.7 (10.0-20.0); Bilirubin, Total 2.2 mg/dL (0.2-1.0); Total Protein 7.6 g/dL (6.4-8.2)
[2022-10-01 22:21] VITALS: BP 155/78; PULSE 83; RESP 18; TEMP 98.5; O2SAT 98
== END 2022-10-01 22:24 | disposition home or self-care (01) ==
LOC: ER 19:12
DX: R07.89 Other chest pain (principal); E11.9 Type 2 diabetes mellitus without complications; E78.5 Hyperlipidemia, unspecified; I10 Essential (primary) hypertension; I25.2 Old myocardial infarction
CPT/HCPCS: 36415; 71045; 80053; 83735; 83880; 84484; 85025; 85610; 85730; 93005

== ENCOUNTER 2022-11-13 03:55 | Emergency (ER) | payer MEDICAID ==
[~2022-11-13] VITALS: Ht 172.7 cm; Wt 161.0 kg
[2022-11-13] MEDS ORDERED: cloNIDine HCL 0.1 MG TAB PO ONE (08:00)
[2022-11-13] MEDS ORDERED: HYDROcodone-ACET 10/325MG TAB PO ONE (08:00)
[2022-11-13 09:07] VITALS: TEMP 97.9
[2022-11-13 09:25] VITALS: BP 137/79; PULSE 79; RESP 18; O2SAT 97
[2022-11-14] MEDS ORDERED: MET25T PO (02:06)
[2022-11-14] MEDS ORDERED: ATOR20TA PO (02:06)
[2022-11-14] MEDS ORDERED: PANT40TA2 PO (02:06)
[2022-11-14] MEDS ORDERED: LOSA25TA5 PO (02:06)
[2022-11-14] MEDS ORDERED: METF-370 PO (02:06)
== END 2022-11-13 08:38 | disposition home or self-care (01) ==
LOC: ER 03:55
DX: I10 Essential (primary) hypertension (principal); E78.5 Hyperlipidemia, unspecified; E11.9 Type 2 diabetes mellitus without complications; I25.2 Old myocardial infarction
CPT/HCPCS: 70450

== ENCOUNTER 2022-11-13 11:04 | Inpatient (IN) | payer MEDICAID ==
[~2022-11-13] VITALS: Ht 177.8 cm; Wt 126.9 kg
[2022-11-13] MEDS ORDERED: SODIUM CHLORIDE 0.9% 1,000 ML IV ONE (11:30)
[2022-11-13 12:16] LABS: Alanine Aminotransferase 21 U/L (7-40); Albumin 3.5 g/dL (3.2-4.8); Alkaline Phosphatase 95 U/L (46-116); Anion Gap 9.4 (5-15); Aspartate Aminotransferase 16 U/L (13-40); BUN/Creatinine Ratio 27.1 (10.0-20.0); Bilirubin, Total 0.7 mg/dL (0.2-1.0); Blood Urea Nitrogen 26 mg/dL (9-23); Calcium 8.9 mg/dL (8.5-10.1); Carbon Dioxide 19.6 mmol/L (20-30); Chloride 114 mmol/L (98-107); Glucose 120 mg/dL (74-106); Potassium 3.7 mmol/L (3.5-5.1); Sodium 143 mmol/L (136-145); Total Protein 7.4 g/dL (5.7-8.2)
[2022-11-13 12:49] LABS: Basophils # (auto) 0.1 10 ^3/uL (0-0.2); Hemoglobin 10.3 g/dL (13.5-17.5); Neutrophils # (auto) 2.9 10 ^3/uL (1.6-8.6)
[2022-11-13 12:51] LABS: Basophils % (auto) 1.7 % (0.0-2.0); Eosinophils # (auto) 0.1 10 ^3/uL (0-0.8); Eosinophils % (auto) 0.9 % (0.0-7.0); Lymphocytes # (auto) 2.7 10 ^3/uL (0.4-5.4); Mean Corpuscular Hemoglobin 23.4 pg (28.0-32.0); Mean Corpuscular Hgb Conc. 32.1 g/dL (32.0-36.0); Monocytes # (auto) 0.6 10 ^3/uL (0-1.3); Monocytes % (auto) 9.8 % (0.0-12.0); Neutrophils % (auto) 45.6 % (37.0-80.0); Nucleated Red Blood Cells % 0.2 %; Red Blood Cells 4.39 10^6/uL (4.5-5.90); White Blood Cell 6.4 10^3/uL (4.4-10.8)
[2022-11-13 12:55] LABS: Red Cell Distribution Width 24.4 % (11.8-14.3)
[2022-11-13] MEDS ORDERED: ACETAMINOPHEN 325 MG TAB PO PRN (13:00)
[2022-11-13 13:17] LABS: Triglycerides 70 mg/dL (< 150)
[2022-11-13 13:18] LABS: LDL Cholesterol 96 mg/dL (< 100)
[2022-11-13 13:19] LABS: Cholesterol 158 mg/dL (< 200); HDL Cholesterol 51 mg/dL (40-59)
[2022-11-13] MEDS ORDERED: DEXTROSE (50%) 50ML SYRG IV PRN (13:45)
[2022-11-13] MEDS ORDERED: FUROSEMIDE 20 MG/2 ML VIAL IV ONE ×2 (13:45)
[2022-11-13 14:13] VITALS: PULSE 76; RESP 26; O2SAT 99
[2022-11-13 16:32] LABS: Urine Bacteria FEW /hpf (None Seen); Urine Blood Negative /uL (Negative); Urine Clarity Clear (Clear); Urine Color Colorless (Yellow); Urine Protein, UAD Negative (Negative); Urine Specific Gravity 1.009 (1.001-1.035); Urine Urobilinogen Normal (Negative); Urine WBC 1 /hpf (0 - 3); Urine pH 6.5 (5.0-8.0)
[2022-11-13 16:36] LABS: Amphetamine Screen, Urine Neg (NEGATIVE)
[2022-11-13 16:38] LABS: Barbiturate Scree,Urine Neg (NEGATIVE); Benzodiazephine Screen, Urine Neg (NEGATIVE); Cannabinoid Screen, Urine Neg (NEGATIVE); Cocaine Screen, Urine Neg (NEGATIVE); Opiate Scree,Urine Neg (NEGATIVE); Phencyclidine Screen, Urine Neg (NEGATIVE)
[2022-11-13] MEDS: InsuLIN REG 1unit/0.01ml Soln (100units/ml) SC SCH ×2 (17:00→22:00)
[2022-11-13] MEDS: ACCU-CHEK COMFORT CURVE STRIP VI SCH ×2 (17:28→22:15)
[2022-11-13] MEDS ORDERED: PANTOPRAZOLE 40 MG/10 ML VIAL INJ IV ONE (17:30)
[2022-11-13 20:20] VITALS: PULSE 77; RESP 14; O2SAT 99
[2022-11-13 20:49] LABS: INR 1.19 (0.9-1.15); Partial Thromboplastin Time 29.6 SEC (24.5-34.5); Prothrombin Time 12.4 sec (9.3-11.8)
[2022-11-13 23:06] VITALS: BP 149/86; PULSE 74; RESP 20; TEMP 98.7; O2SAT 100
[2022-11-14] VITALS (7 sets, daily range): BP systolic 128–161; BP diastolic 71–97; PULSE 70–92; RESP 18–20; TEMP 98–98.2; O2SAT 94–100
[2022-11-14] MEDS ORDERED: LOSA25TA5 PO (02:06)
[2022-11-14] MEDS ORDERED: MET25T PO (02:06)
[2022-11-14] MEDS ORDERED: PANT40TA2 PO (02:06)
[2022-11-14] MEDS ORDERED: METF-370 PO (02:06)
[2022-11-14] MEDS ORDERED: ATOR20TA PO (02:06)
[2022-11-14] MEDS: ACCU-CHEK COMFORT CURVE STRIP VI SCH ×4 (06:13→21:13)
[2022-11-14] MEDS: hydrALAZINE HCL 20 MG/ML VL IV PRN ×2 (06:13→14:05)
[2022-11-14] MEDS: InsuLIN REG 1unit/0.01ml Soln (100units/ml) SC SCH ×4 (06:14→21:16)
[2022-11-14] MEDS ORDERED: LORazepam 0.5 MG TAB PO ONE (07:30)
[2022-11-14 08:30] LABS: Basophils # (auto) 0.1 10 ^3/uL (0-0.2); Eosinophils # (auto) 0.1 10 ^3/uL (0-0.8); White Blood Cell 4.7 10^3/uL (4.4-10.8)
[2022-11-14 08:33] LABS: Basophils % (auto) 3.1 % (0.0-2.0); Eosinophils % (auto) 2.7 % (0.0-7.0); Hematocrit 31.9 % (41.0-53.0); Lymphocytes # (auto) 2.1 10 ^3/uL (0.4-5.4); Lymphocytes % (auto) 45.3 % (10.0-50.0); Mean Corpuscular Hemoglobin 23.2 pg (28.0-32.0); Mean Corpuscular Hgb Conc. 31.3 g/dL (32.0-36.0); Mean Corpuscular Volume 74.1 fL (80.0-100.0); Monocytes # (auto) 0.7 10 ^3/uL (0-1.3); Neutrophils # (auto) 1.7 10 ^3/uL (1.6-8.6); Neutrophils % (auto) 34.9 % (37.0-80.0); Nucleated Red Blood Cells % 0.1 %; Red Cell Distribution Width 24.2 % (11.8-14.3)
[2022-11-14 08:50] LABS: % Iron Saturation 9.3 % (20-55); Alanine Aminotransferase 16 U/L (7-40); Albumin 3.2 g/dL (3.2-4.8); Alkaline Phosphatase 85 U/L (46-116); Anion Gap 6.4 (5-15); Aspartate Aminotransferase 16 U/L (13-40); BUN/Creatinine Ratio 16.2 (10.0-20.0); Bilirubin, Total 0.8 mg/dL (0.2-1.0); Blood Urea Nitrogen 18 mg/dL (9-23); Calcium 8.6 mg/dL (8.5-10.1); Carbon Dioxide 22.6 mmol/L (20-30); Chloride 114 mmol/L (98-107); Glucose 108 mg/dL (74-106); Potassium 3.5 mmol/L (3.5-5.1); Sodium 143 mmol/L (136-145)
[2022-11-14] MEDS ORDERED: PANTOPRAZOLE 40 MG/10 ML VIAL INJ IV SCH (10:00)
[2022-11-14] MEDS ORDERED: LACTULOSE 20Gm/30ML SOLN PO SCH (10:00)
[2022-11-14] MEDS ORDERED: ENOXAPARIN SOD 40 MG/0.4 ML SYRINGE SC SCH (10:00)
[2022-11-14] MEDS ORDERED: PARoxetine 20 MG TAB PO ONE (10:30)
[2022-11-14] MEDS: LOSARTAN POTASSIUM 50 MG TAB PO SCH (10:52)
[2022-11-14] MEDS: PANTOPRAZOLE 40 MG TAB PO SCH (10:52)
[2022-11-14] MEDS: THIAMINE HCL 100 MG TAB PO SCH (10:52)
[2022-11-14] MEDS: LACTULOSE 20Gm/30ML SOLN PO SCH (21:13)
[2022-11-14] MEDS ORDERED: ATORVASTATIN 20 MG TAB PO SCH (22:00)
[2022-11-15 00:14] LABS: INR 1.19 (0.9-1.15); Partial Thromboplastin Time 30.6 SEC (24.5-34.5); Prothrombin Time 12.4 sec (9.3-11.8)
[2022-11-15 05:00] VITALS: BP 122/57; PULSE 70; RESP 20; TEMP 97.7; O2SAT 98
[2022-11-15 05:58] LABS: Mean Corpuscular Hemoglobin 23.5 pg (28.0-32.0)
[2022-11-15 05:59] LABS: Hematocrit 31.3 % (41.0-53.0); Hemoglobin 9.9 g/dL (13.5-17.5); Mean Corpuscular Hgb Conc. 31.8 g/dL (32.0-36.0); Red Blood Cells 4.22 10^6/uL (4.5-5.90); White Blood Cell 4.6 10^3/uL (4.4-10.8)
[2022-11-15 06:13] LABS: Red Cell Distribution Width 24.6 % (11.8-14.3)
[2022-11-15 06:14] LABS: Band Neutrophils % (manual) 0; Basophils % (manual) 0 (0.0-2.0); Blast Cells 0; Metamyelocytes % 0; Myelocytes % 0; Promyelocytes % 0
[2022-11-15] MEDS: ACCU-CHEK COMFORT CURVE STRIP VI SCH ×2 (06:16→13:37)
[2022-11-15] MEDS: InsuLIN REG 1unit/0.01ml Soln (100units/ml) SC SCH ×2 (06:20→11:30)
[2022-11-15 06:22] LABS: Alanine Aminotransferase 16 U/L (7-40); Albumin 3.1 g/dL (3.2-4.8); Alkaline Phosphatase 87 U/L (46-116); Anion Gap 7 (5-15); Aspartate Aminotransferase 19 U/L (13-40); BUN/Creatinine Ratio 17.2 (10.0-20.0); Bilirubin, Total 1.2 mg/dL (0.2-1.0); Blood Urea Nitrogen 16 mg/dL (9-23); Calcium 8.4 mg/dL (8.5-10.1); Carbon Dioxide 21 mmol/L (20-30); Chloride 113 mmol/L (98-107); Glucose 87 mg/dL (74-106); Potassium 3.6 mmol/L (3.5-5.1); Sodium 141 mmol/L (136-145); Total Protein 6.9 g/dL (5.7-8.2)
[2022-11-15 07:51] LABS: Eosinophils % (manual) 3 (0-7); Lymphocytes % (manual) 47 (10.0-50.0); Monocytes % (manual) 13 (0-12); Platelet Estimate Adequate; Reactive Lymphocytes 2
[2022-11-15 08:00] VITALS: PULSE 75; RESP 18; O2SAT 98
[2022-11-15 09:15] VITALS: BP 135/75; PULSE 75; RESP 18; TEMP 98.7; O2SAT 98
[2022-11-15] MEDS: PANTOPRAZOLE 40 MG TAB PO SCH (09:20)
[2022-11-15] MEDS: THIAMINE HCL 100 MG TAB PO SCH (09:21)
[2022-11-15] MEDS: LOSARTAN POTASSIUM 50 MG TAB PO SCH (09:22)
[2022-11-15] MEDS: LACTULOSE 20Gm/30ML SOLN PO SCH (09:24)
[2022-11-15] MEDS ORDERED: PARoxetine 20 MG TAB PO SCH (10:00)
[2022-11-15 12:37] VITALS: BP 133/71; PULSE 72; RESP 20; TEMP 98; O2SAT 98
[2022-11-15] MEDS ORDERED: PAR20T PO (12:40)
[2022-11-15] MEDS ORDERED: LACT10SO3 PO (12:40)
[2022-11-15 13:46] VITALS: BP 135/75
[2022-11-15 15:12] LABS: Hepatitis B Surface Antigen Negative (Negative)
[2022-11-15 15:30] LABS: Hepatitis A Ab IgM Negative
[2022-11-15 15:33] LABS: Hepatitis B Core IgM Negative; Hepatitis C Antibody Negative (Negative)
== END 2022-11-15 15:41 | disposition home or self-care (01) | DRG 194 ==
LOC: ER 11:04 → EDBD 11:04 → OVERFLOW 12:58 → WEST WING 21:26
PROVIDERS: ADMIT Internal Medicine
DX: I11.0 Hypertensive heart disease with heart failure (principal); G92.8 Other toxic encephalopathy; E72.20 Disorder of urea cycle metabolism, unspecified; E11.9 Type 2 diabetes mellitus without complications; E66.01 Morbid (severe) obesity due to excess calories; E78.5 Hyperlipidemia, unspecified; D50.9 Iron deficiency anemia, unspecified; I50.41 Acute combined systolic (congestive) and diastolic (congestive) heart failure; K74.60 Unspecified cirrhosis of liver; F10.10 Alcohol abuse, uncomplicated; Y90.8 Blood alcohol level of 240 mg/100 ml or more; F41.0 Panic disorder [episodic paroxysmal anxiety]; Z68.41 Body mass index [BMI] 40.0-44.9, adult; Z71.3 Dietary counseling and surveillance; Z91.148 Patient's other noncompliance with medication regimen for other reason
CPT/HCPCS: 36415; 71045; 74176; 76705; 80053; 80061; 80074; 80307; 81001; 82140; 82270; 82728; 82962; 83036; 83540; 83550; 83605; 83880; 84443; 84484; 85007; 85025; 85027; 85610; 85730; 93005; 96361; 96374; 96375; 97110; 97116; 97163; 97530; C9113; G0378; J1815

== ENCOUNTER 2023-02-12 11:31 | Emergency (ER) | payer MEDICAID ==
[~2023-02-12] VITALS: Ht 177.8 cm; Wt 136.0 kg
[~2023-02-12 11:31] MED LIST changes: -ALBUTEROL SULF 2.5 MG/0.5ML(0.5%) NEB SOLN ONE; +ATOR20TA PO; +LACT10SO3 PO; +LOSA25TA5 PO; +MET25T PO; +METF-370 PO; +PANT40TA2 PO; +PAR20T PO; -SODIUM CHLORIDE 0.9 % NEB SOLN 3ML NEB ONE
[2023-02-12 13:27] LABS: Basophils # (auto) 0.1 10 ^3/uL (0-0.2); Basophils % (auto) 1.1 % (0.0-2.0); Eosinophils # (auto) 0.1 10 ^3/uL (0-0.8); Eosinophils % (auto) 1.2 % (0.0-7.0); Hematocrit 34.1 % (41.0-53.0); Lymphocytes # (auto) 1.3 10 ^3/uL (0.4-5.4); Lymphocytes % (auto) 22.7 % (10.0-50.0); Mean Corpuscular Hemoglobin 24.8 pg (28.0-32.0); Mean Corpuscular Hgb Conc. 32.1 g/dL (32.0-36.0); Mean Corpuscular Volume 77.3 fL (80.0-100.0); Monocytes % (auto) 16.8 % (0.0-12.0); Neutrophils # (auto) 3.4 10 ^3/uL (1.6-8.6); Neutrophils % (auto) 58.2 % (37.0-80.0); Red Blood Cells 4.42 10^6/uL (4.5-5.90); White Blood Cell 5.8 10^3/uL (4.4-10.8)
[2023-02-12 13:30] LABS: Red Cell Distribution Width 21.8 % (11.8-14.3)
[2023-02-12 13:31] LABS: Urine Bacteria FEW /hpf (None Seen); Urine Blood 2+ /uL (Negative); Urine Clarity Clear (Clear); Urine Color Yellow (Yellow); Urine Protein, UAD Negative (Negative); Urine WBC 4 /hpf (0 - 3)
[2023-02-12 13:43] LABS: Alanine Aminotransferase 38 U/L (7-40); Albumin 3.5 g/dL (3.2-4.8); Alkaline Phosphatase 168 U/L (46-116); Anion Gap 6 (5-15); Aspartate Aminotransferase 46 U/L (13-40); BUN/Creatinine Ratio 10.4 (10.0-20.0); Bilirubin, Total 1.7 mg/dL (0.2-1.0); Blood Urea Nitrogen 10 mg/dL (9-23); Calcium 8.7 mg/dL (8.5-10.1); Carbon Dioxide 24 mmol/L (20-30); Chloride 106 mmol/L (98-107); Glucose 91 mg/dL (74-106); Sodium 136 mmol/L (136-145); Total Protein 7.8 g/dL (5.7-8.2)
[2023-02-12] MEDS ORDERED: DICY10CA PO (16:03)
[2023-02-12] MEDS ORDERED: ZOFR4T PO (16:03)
[2023-02-12 17:30] VITALS: BP 148/82; PULSE 78; RESP 16; TEMP 98.6; O2SAT 98
== END 2023-02-12 16:17 | disposition home or self-care (01) ==
LOC: ER 11:31
DX: K57.90 Diverticulosis of intestine, part unspecified, without perforation or abscess without bleeding (principal); K74.60 Unspecified cirrhosis of liver; E78.5 Hyperlipidemia, unspecified; E11.9 Type 2 diabetes mellitus without complications; I10 Essential (primary) hypertension; I25.2 Old myocardial infarction
CPT/HCPCS: 36415; 71045; 74176; 80053; 81001; 82248; 83690; 84484; 85025

== ENCOUNTER 2023-02-23 21:35 | Emergency (ER) | payer MEDICAID ==
[~2023-02-23] VITALS: Ht 167.6 cm; Wt 133.9 kg
[~2023-02-23 21:35] MED LIST changes: +DICY10CA PO; +ZOFR4T PO
[2023-02-23 22:56] LABS: Basophils # (auto) 0.1 10 ^3/uL (0-0.2); Eosinophils # (auto) 0.2 10 ^3/uL (0-0.8); Eosinophils % (auto) 2.7 % (0.0-7.0); Hemoglobin 11.1 g/dL (13.5-17.5); Lymphocytes # (auto) 2.1 10 ^3/uL (0.4-5.4); Mean Corpuscular Hgb Conc. 30.8 g/dL (32.0-36.0); Neutrophils # (auto) 2.8 10 ^3/uL (1.6-8.6); Nucleated Red Blood Cells % 0.1 %; White Blood Cell 6.1 10^3/uL (4.4-10.8)
[2023-02-23 22:58] LABS: Basophils % (auto) 1.6 % (0.0-2.0); Lymphocytes % (auto) 33.9 % (10.0-50.0); Mean Corpuscular Hemoglobin 24.8 pg (28.0-32.0); Mean Corpuscular Volume 80.4 fL (80.0-100.0); Monocytes % (auto) 16.7 % (0.0-12.0); Neutrophils % (auto) 45.1 % (37.0-80.0); Red Blood Cells 4.47 10^6/uL (4.5-5.90); Red Cell Distribution Width 22.8 % (11.8-14.3)
[2023-02-23 23:08] LABS: Alanine Aminotransferase 32 U/L (7-40); Albumin 3.3 g/dL (3.2-4.8); Alkaline Phosphatase 229 U/L (46-116); Anion Gap 13 (5-15); Aspartate Aminotransferase 53 U/L (13-40); BUN/Creatinine Ratio 9.6 (10.0-20.0); Blood Urea Nitrogen 12 mg/dL (9-23); Calcium 8.2 mg/dL (8.7-10.4); Carbon Dioxide 19 mmol/L (20-30); Chloride 108 mmol/L (98-107); Glucose 105 mg/dL (74-106); Lipase 52 U/L (12-53); Potassium 3.8 mmol/L (3.5-5.1); Sodium 140 mmol/L (136-145)
[2023-02-23 23:09] LABS: Bilirubin, Total 0.9 mg/dL (0.2-1.0)
[2023-02-23 23:34] LABS: Urine Bacteria MANY /hpf (None Seen); Urine Blood 3+ /uL (Negative); Urine Clarity HAZY (Clear); Urine Color Yellow (Yellow); Urine Hyaline Cast FEW /lpf (0 - 2); Urine Mucus FEW (None Seen); Urine Protein, UAD TRACE (Negative); Urine Specific Gravity 1.019 (1.001-1.035); Urine WBC 30 /hpf (0 - 3); Urine WBC Clumps PRESENT /hpf (None Seen)
[2023-02-24 02:50] LABS: Erythrocyte Sedimentation Rate 80 mm/hr (0-20)
[2023-02-24] MEDS ORDERED: CEPH250C PO (07:09)
[2023-02-24 07:42] VITALS: BP 144/78; PULSE 97; RESP 18; TEMP 98.4; O2SAT 100
== END 2023-02-24 07:44 | disposition home or self-care (01) ==
LOC: ER 21:35
DX: N39.0 Urinary tract infection, site not specified (principal); R10.13 Epigastric pain; D64.9 Anemia, unspecified; R09.89 Other specified symptoms and signs involving the circulatory and respiratory systems; I10 Essential (primary) hypertension; E78.5 Hyperlipidemia, unspecified; E11.9 Type 2 diabetes mellitus without complications; I25.2 Old myocardial infarction; Z79.899 Other long term (current) drug therapy
CPT/HCPCS: 36415; 71045; 80053; 81001; 82140; 83690; 84484; 85025; 85652; 86141

== ENCOUNTER 2023-10-03 18:08 | Emergency (ER) | payer OTHER, MEDICAID ==
[~2023-10-03] VITALS: Ht 175.3 cm; Wt 150.0 kg
[~2023-10-03 18:08] MED LIST changes: +CEPH250C PO; +FURO40TA4 PO; +LOSA-534 PO; +MONT-8 PO; +SOLI10TA39 PO
[2023-10-03 19:04] LABS: Basophils # (auto) 0.1 10 ^3/uL (0-0.2); Basophils % (auto) 1.3 % (0.0-2.0); Eosinophils # (auto) 0.1 10 ^3/uL (0-0.8); Eosinophils % (auto) 3.2 % (0.0-7.0); Hematocrit 31.1 % (41.0-53.0); Hemoglobin 10.1 g/dL (13.5-17.5); Lymphocytes # (auto) 1.8 10 ^3/uL (0.4-5.4); Lymphocytes % (auto) 42.8 % (10.0-50.0); Mean Corpuscular Hemoglobin 24.5 pg (28.0-32.0); Mean Corpuscular Hgb Conc. 32.4 g/dL (32.0-36.0); Mean Corpuscular Volume 75.5 fL (80.0-100.0); Monocytes # (auto) 0.5 10 ^3/uL (0-1.3); Monocytes % (auto) 12.9 % (0.0-12.0); Neutrophils # (auto) 1.6 10 ^3/uL (1.6-8.6); Neutrophils % (auto) 39.8 % (37.0-80.0); Red Blood Cells 4.11 10^6/uL (4.5-5.90); White Blood Cell 4.1 10^3/uL (4.4-10.8)
[2023-10-03 19:06] LABS: Red Cell Distribution Width 21.7 % (11.8-14.3)
[2023-10-03 19:19] LABS: Alanine Aminotransferase 12 U/L (7-40); Albumin 3.5 g/dL (3.2-4.8); Alkaline Phosphatase 87 U/L (46-116); Anion Gap 11 (5-15); Aspartate Aminotransferase 15 U/L (13-40); BUN/Creatinine Ratio 13.4 (10.0-20.0); Blood Urea Nitrogen 19 mg/dL (9-23); Calcium 8.9 mg/dL (8.7-10.4); Carbon Dioxide 19 mmol/L (20-30); Chloride 110 mmol/L (98-107); Glucose 110 mg/dL (74-106); Potassium 4.1 mmol/L (3.5-5.1); Sodium 140 mmol/L (136-145)
[2023-10-03 19:20] LABS: Bilirubin, Total 0.7 mg/dL (0.2-1.0); Total Protein 7.1 g/dL (5.7-8.2)
[2023-10-03 19:25] LABS: Anisocytosis Slight; Ovalocytes FEW
[2023-10-03 19:26] LABS: Hypochromia Slight; Platelet Estimate Adequate
[2023-10-03] MEDS: NITROGLYCERIN 0.4 MG SL TAB SL ONE (21:37)
[2023-10-03 21:40] VITALS: BP 125/63; PULSE 68; RESP 18; TEMP 98.4; O2SAT 100
[2023-10-03] MEDS ORDERED: NITR0.4S29 SL (22:50)
== END 2023-10-03 23:10 | disposition home or self-care (01) ==
LOC: ER 18:08
DX: K74.60 Unspecified cirrhosis of liver (principal); R07.89 Other chest pain; I10 Essential (primary) hypertension; E11.9 Type 2 diabetes mellitus without complications; E78.5 Hyperlipidemia, unspecified; I25.2 Old myocardial infarction; R51.9 Headache, unspecified; E66.01 Morbid (severe) obesity due to excess calories; Z68.42 Body mass index [BMI] 45.0-49.9, adult; Z79.899 Other long term (current) drug therapy
CPT/HCPCS: 36415; 70450; 71045; 74176; 80053; 82140; 83690; 84484; 85025; 93005

== ENCOUNTER 2025-02-11 15:56 | Inpatient (IN) | payer MEDICARE, MEDICAID ==
[~2025-02-11] VITALS: Ht 182.9 cm; Wt 141.0 kg
[~2025-02-11 15:56] MED LIST changes: +NITR0.4S29 SL
--- NOTE | 2025-02-11 16:11 | ED.PDOC ---
Altered Mental Status HPI Comments HPI: 64 y/o M, BIBCecelia, presents to the ED for CC of ALOC. 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 En route to the ED, all VS were WNL and patient is A&Ox1 to self only. No other symptoms or modifying factors are obta inable at this time. Initial Vitals BP: 116/67 HR: 97 RR: 24 O2: 94% Temp: 98.2 Past Medical History: Liver Cirrhosis, HTN, HLD, HTN, AR Past Surgical History: Denies ANY Social History: Unknown Medications: Unknown Allergies: NKA HPI: Poor Historian. REVIEW OF SYSTEMS: CONSTITUTIONAL: Denies acute: fever, diaphoresis, chills, HEAD: Denies acute: headache, photophobia Eyes: Denies acute: Double vision, vision loss, eye pain, eye discharge. EARS: Denies acute: tinnitus, hearing loss, ear discharge, ear pain, THROAT: Denies acute: sore throat, swelling, difficulty swallowing , pain with swallowing, change in voice. NECK: Denies acute: neck pain, neck swelling, stiff neck. HEART: Denies acute : chest pain, palpitations, LUNGS: Denies acute: SOB, wheezing, cough, hemoptysis ABDOMEN: Denies acute: abdominal pain, Nausea, Vomiting, diarrhea, melena , hematemesis, hematochezia SKIN: Denies acute: rash, redness, lesions, itchiness. EXTREMITIES: Denies acute: calf pain, numbness, tingling, weakness, denies pain in extremity. Denies acute: Low back pain. Neuro: Denies acute: focal neurological deficit, motor or sensory focal neurological deficit, tremors, seizure like activity, dizziness, loss of bowel or bladder function, cauda equina like symptoms. : Denies acute: dysuria, hematuria, flank pain, increase in urinary frequency. PSYCH: Denies acute: hallucination, suicidal ideation, homicidal ideation. PHYSICAL EXAM: General: ----mild----acute distress, awake and alert. Head: normocephalic, atraumatic. No raccoon's eyes, no rice sign. Neck: supple, trachea is midline, no swelling. Throat: Normal phonation. Eyes:, no erythema, no purulent discharge, no proptosis, no icterus. Heart: regular rate, regular rhythm, no significant murmur appreciated. Lungs: no apparent respiratory distress, Able to speak in full sentences. No wheezing, no rhonchi, no crackles. No stridors Clear to auscultation bilaterally. Abdomen: non tender to palpation, non distended, soft, no guarding, no rebound, + bowel sounds. Obese Neuro: Awake, Alert, oriented to name, self, follows commands Skin: no petechia, no purpura, no cyanosis, non-pale, not jaundice. Lower extremities: -- 1/4 trace - Pitting edema no deformity, no focal swelling, no calf TTP. Makes eye contact. moves all four extremities. Face: no apparent facial droop. ED COURSE: DISCLAIMER: This medical document was created using an electronic medical record system with voice recognition software and computerized dictation system. Although this document has been carefully reviewed, there might still be some phonetic and typographical errors. Occasional wrong-word or "sound-alike" substitutions may have occurred due to the inherent limitations of voice recognition software. These areas are purely typographical due to imperfections of the software programs and do not reflect any compromise in the patient's medical care. Please read the chart carefully and recognize, using context, where these substitutions have occurred. Chief Complaint: ALOC Time Seen by MD: 16:00 Primary Care Provider: REMI Reviewed Notes: Allergies Allergies: Coded Allergies: NO KNOWN ALLERGIES (Unverified , 03/10/20) Home Meds Active Scripts Nitroglycerin (Nitrostat) 0.4 Mg Sub, 0.4 MG SL BIDP PRN, #10 TAB Prov:YASIR OLGUIN PAC 10/03/23 Cephalexin (KEFLEX CAPSULE) 250 Mg Cp, 1 CAP PO QID for 10 Days, #40 CAP Prov:SHERYL RADER DO 02/24/23 Ondansetron Odt 4MG Tab (ZOFRAN PO) 4 Mg Tb, 4 MG PO TID for 7 Days, #21 TAB ODT TAB-DISSOLVE IN MOUTH, THEN SWALLOW Prov:JS SINGH MD 02/12/23 Dicyclomine Hcl (BENTYL CAPSULE) 10 Mg Cp, 1 CAP PO TID for 5 Days, #15 CAP 11 Refills Prov:JS SINGH MD 02/12/23 Lactulose (Lactulose) 10 Gm/15 Ml Yu, 10 GM PO BID for 30 Days, #120 ML 3 Refills Prov:MADDY GIBSON MD 11/15/22 Paroxetine (PAXIL TABLET) 20 Mg Tb, 40 MG PO DAILY for 30 Days, #60 TAB 3 Refills Prov:MADDY GIBSON MD 11/15/22 Reported Medications Solifenacin Succinate (Solifenacin Succinate) 10 Mg Tab, 1 TAB PO DAILY 08/16/23 Atorvastatin Calcium (Lipitor) 20 Mg Tab, 1 TAB PO DAILY 08/16/23 Pantoprazole Sodium Sesquihydr (Protonix) 40 Mg Tab, 1 TAB PO DAILY 08/16/23 Furosemide (Furosemide) 40 Mg Tab, 1 TAB PO DAILY 08/16/23 Losartan Potassium (Losartan Potassium) 50 Mg Tab, 1 TAB PO DAILY 08/16/23 Metformin Hydrochloride (Metformin Hcl) 500 Mg Tab, 1 TAB PO QAM 08/16/23 Montelukast Sodium (MONTELUKAST SODIUM) 10 Mg Tab, 1 TAB PO DAILY 08/16/23 Losartan Potassium (Cozaar) 25 Mg Tab, 1 TAB PO DAILY, #30 TAB 5 Refills 11/14/22 Atorvastatin Calcium (Lipitor) 20 Mg Tab, 1 TAB PO DAILY, #90 TAB 1 Refill 11/14/22 Pantoprazole Sodium Sesquihydr (Protonix) 40 Mg Tab, 40 MG PO DAILY, #30 TAB 11/14/22 Metoprolol Tartrate (Lopressor) 25 Mg Tb, 25 MG PO Q12HR, TAB 0 Refills 11/14/22 Metformin Hydrochloride (Metformin Hcl) 500 Mg Tab, 500 MG PO DAILY for 30 Days, MG 11/14/22 Information Source: Relative, Emergency Med Personnel Mode of Arrival: EMS Prehospital treatment: None History of: CVA Associated Signs and Symptoms: None Was a procedure done? Was a procedure done?: No Differential Diagnosis (ALOC) Differential Diagnosis: Dehydration, Hypoglycemia, Sepsis X-Ray, Labs, Meds, VS Vital Signs Date Time Temp Pulse Resp B/P (MAP) Pulse Ox O2 Delivery O2 Flow Rate FiO2 02/11/25 16:45 96 02/11/25 16:23 99.2 93 21 108/47 (67) 95 99.2 02/11/25 16:23 93 21 95 Room Air* 0 21 02/11/25 15:58 98.2 97 24 116/67 94 98.2 Lab Test 02/11/25 16:56 02/11/25 16:18 Range/Units Troponin I High Sensitivity 63 *H 71 *H </=54 ng/L White Blood Count 13.3 H 4.4-10.8 10^3/uL Red Blood Count 4.07 L 4.5-5.90 10^6/uL Hemoglobin 13.4 L 13.5-17.5 g/dL Hematocrit 39.4 L 41.0-53.0 % Mean Corpuscular Volume 96.9 80.0-100.0 fL Mean Corpuscular Hemoglobin 32.9 H 28.0-32.0 pg Mean Corpuscular Hemoglobin Concent 33.9 32.0-36.0 g/dL Red Cell Distribution Width 14.3 11.8-14.3 % Platelet Count 101 L 140-450 10^3/uL Mean Platelet Volume 12.0 H 6.9-10.8 fL Neutrophils (%) (Auto) 81.7 H 37.0-80.0 % Lymphocytes (%) (Auto) 5.9 L 10.0-50.0 % Monocytes (%) (Auto) 11.8 0.0-12.0 % Eosinophils (%) (Auto) 0.1 0.0-7.0 % Basophils (%) (Auto) 0.5 0.0-2.0 % Neutrophils # (Auto) 10.9 H 1.6-8.6 10 ^3/uL Lymphocytes # (Auto) 0.8 0.4-5.4 10 ^3/uL Monocytes # (Auto) 1.6 H 0-1.3 10 ^3/uL Eosinophils # (Auto) 0 0-0.8 10 ^3/uL Basophils # (Auto) 0.1 0-0.2 10 ^3/uL Nucleated Red Blood Cells 0.0 % Sodium Level 137 136-145 mmol/L Potassium Level 4.3 3.5-5.1 mmol/L Chloride Level 107 98-107 mmol/L Carbon Dioxide Level 17 L 20-31 mmol/L Anion Gap 13 5-15 Blood Urea Nitrogen 26 H 9-23 mg/dL Creatinine 1.42 H 0.700-1.30 mg/dL Glomerular Filtration Rate Calc 56 >90 mL/min BUN/Creatinine Ratio 18.3 10.0-20.0 Serum Glucose 103 74-106 mg/dL Lactic Acid Level 2.4 *H 0.4-2.0 mmol/L Calcium Level 8.5 L 8.7-10.4 mg/dL Magnesium Level 1.8 1.6-2.6 mg/dL Total Bilirubin 1.1 H 0.2-1.0 mg/dL Aspartate Amino Transferase (AST) 59 H 13-40 U/L Alanine Aminotransferase (ALT) 34 7-40 U/L Alkaline Phosphatase 124 H 46-116 U/L Ammonia 131 *H 11-32 umol/L B-Type Natriuretic Peptide 109.25 0-100 pg/mL Total Protein 6.8 5.7-8.2 g/dL Albumin 3.3 3.2-4.8 g/dL Lipase 41 12-53 U/L Plasma/Serum Blood Alcohol < 3.0 <10 mg/dL Current Medications Medications (Trade) Dose Ordered Sig/Joyce Route Start Time Stop Time Status Last Admin Lactulose 60 ml ONCE ONCE PO 02/11/25 17:00 02/11/25 17:01 DC 02/11/25 17:02 Time of 1ST Reevaluation: 16:30 Reevaluation 1ST: Unchanged Patient Education/Counseling: Other (PT is altered) Family Education/Counseling: Diagnosis, Treatment SEPSIS Sepsis Screen Date sepsis recognized/suspect: Feb 11, 2025 Time Sepsis recognized/suspect: 160 Recent Procedure: No On Antibiotic Therapy: No Respiratory Rate >20: Yes Heart Rate >90: No Temp<36 C (96.8 F) or >38.3 C: No SBP <90 or MAP <65 mmHG: No New Acute Mental Status Change: No Is the patient on CPAP, BIPAP,: No Physician Orders Cell Tender (02/11/25 ) Drug Screen (02/11/25 16:03) Urinalysis (02/11/25 16:03) Chest Portable (02/11/25 16:03) Head Without Contrast (02/11/25 16:03) Stroke Assessment (02/11/25 16:03) Neurological Assessment (02/11/25 16:03) Troponin-I Hs (02/11/25 19:03) Ceftriaxone 1gm/50ml (Rocephin) (02/11/25 17:30) Vital Signs Date Time Temp Pulse Resp B/P (MAP) Pulse Ox O2 Delivery O2 Flow Rate FiO2 02/11/25 16:45 96 02/11/25 16:23 99.2 93 21 108/47 (67) 95 99.2 02/11/25 16:23 93 21 95 Room Air* 0 21 02/11/25 15:58 98.2 97 24 116/67 94 98.2 Laboratory Tests Test 02/11/25 16:18 Lactic Acid Level 2.4 mmol/L (0.4-2.0) *H White Blood Count 13.3 10^3/uL (4.4-10.8) H Medications Medications Dose Ordered Sig/Joyce Route Start Time Stop Time Status Last Admin Dose Admin Lactulose 60 ml ONCE ONCE PO 02/11/25 17:00 02/11/25 17:01 DC 02/11/25 17:02 Departure 1 Departure Time of Disposition: 16:55 Impression: Primary Impression: Altered mental status Additional Impressions: Hepatic encephalopathy Hyperammonemia Thrombocytopenia Elevated troponin Disposition: ADMITTED INPATIENT Admit to: Tele Condition: Guarded Discharged With: Self Critical Care Note Critical Care Time?: No I personally scribed for INA DOYLE DO ([email or web address]) on 02/11/25 at 16:11. Electronically submitted by Doretha Poe [email or web address]). I personally scribed for INA DOYLE DO ([email or web address]) on 02/11/25 at 16:26. Electronically submitted by Doretha Poe [email or web address]). INA DOYLE DO Feb 11, 2025 16:11
[2025-02-11 16:23] VITALS: PULSE 93; RESP 21; O2SAT 95
[2025-02-11 16:42] LABS: Hematocrit 39.4 % (41.0-53.0); Hemoglobin 13.4 g/dL (13.5-17.5); Mean Corpuscular Hemoglobin 32.9 pg (28.0-32.0); Mean Corpuscular Volume 96.9 fL (80.0-100.0); Nucleated Red Blood Cells % 0.0 %
[2025-02-11 16:51] LABS: Alanine Aminotransferase 34 U/L (7-40); Albumin 3.3 g/dL (3.2-4.8); Anion Gap 13 (5-15); BUN/Creatinine Ratio 18.3 (10.0-20.0); Chloride 107 mmol/L (98-107); Glucose 103 mg/dL (74-106); Lipase 41 U/L (12-53); Magnesium 1.8 mg/dL (1.6-2.6); Potassium 4.3 mmol/L (3.5-5.1); Sodium 137 mmol/L (136-145); Total Protein 6.8 g/dL (5.7-8.2)
[2025-02-11 16:52] LABS: Bilirubin, Total 1.1 mg/dL (0.2-1.0)
[2025-02-11 16:54] LABS: Alkaline Phosphatase 124 U/L (46-116); Blood Urea Nitrogen 26 mg/dL (9-23); Calcium 8.5 mg/dL (8.7-10.4); Carbon Dioxide 17 mmol/L (20-31)
--- NOTE | 2025-02-11 16:56 | DVH ---
CHEST RADIOGRAPH INDICATION: ALOC TECHNIQUE: Single frontal view of the chest was obtained. COMPARISON: XY CHEST PORTABLE on DOS: 10/03/23, XY CHEST XRAY 1 VIEW on DOS: 02/24/23 FINDINGS: Mild pulmonary vascular congestion. No significant pleural effusion. No pneumothorax. Stable cardiomediastinal silhouette. IMPRESSION: Mild pulmonary vascular congestion.
--- NOTE | 2025-02-11 16:58 | ECG ---
[facility] Test Date: 2025-02-11 Test Time: 15:57:40 Pat Name: MADDY PEARCE Department: ED Room: Gender: M Belt Notcher: ELEONORA : 1960 Requested By: INA DOYLE Order Number: [id number] Reading MD: Rosendo Jaeger Measurements Intervals Zenia Rate: 96 P: 57 PA: 149 QRS: 14 QRSD: 103 T: 44 QT: 362 QTc: 458 Interpretive Statements Sinus rhythm Electronically Signed On 02-11-2025 20:12:45 PST by Rosendo Jaeger Please click the below link to view image of tracing.
[2025-02-11] MEDS: LACTULOSE 20Gm/30ML SOLN PO ONE (17:02)
[2025-02-11 17:14] LABS: Lactic Acid w/Reflex 2.4 mmol/L (0.4-2.0)
--- NOTE | 2025-02-11 17:14 | DVH ---
EXAM: CT HEAD WITHOUT CONTRAST INDICATION: ALOC COMPARISON: CT HEAD WITHOUT CONTRAST on DOS: 10/03/23, CT HEAD WITHOUT CONTRAST on DOS: 11/13/22 TECHNIQUE: CT of the head without intravenous contrast. Radiation Dose Information: CT Dose: CTDI volume is 40 mGy. Dose-length product is 897 mGy*cm The dose indicators for CT are the volume Computed Tomography (CT) Dose Index (CTDIvol) and the Dose Length Product (DLP), and are measured in units of mGy and mGy-cm, respectively. These indicators are not patient dose, but values generated from the CT scanner acquisition factors. The report includes radiation exposure data for exposures received during this examination. FINDINGS: Scattered hypoattenuation in the periventricular and subcortical white matter, suggestive of chronic microvascular disease. The ventricles and sulci are mildly enlarged, compatible with generalized parenchymal volume loss. There is no mass- effect, hemorrhage, midline shift, or abnormal extra-axial fluid collection visible. No calvarial fracture. Diffuse left maxillary sinus opacification. Mastoid air cells are clear. IMPRESSION: No acute intracranial hemorrhage or mass effect. Diffuse left maxillary sinus opacification could be seen with infundibular obstruction.
[2025-02-11] MEDS: PANTOPRAZOLE 40 MG TAB PO ONE (20:00)
[2025-02-11] MEDS ORDERED: DEXTROSE (50%) 50ML SYRG IV PRN (20:00)
--- NOTE | 2025-02-11 20:01 | DVHHPRES ---
History of Present Illness Resident Creating Document: ROSETTE COLLINS RESIDENT History of Present Illness 64-year-old male with past medical history of diabetes mellitus two, obstructive sleep apnea, [place], morbid obesity, hypertension, dyslipidemia, liver cirrhosis, hepatic encephalopathy in the past, alcohol use disorder in the past, SVT in the past, thrombocytopenia, COVID-19 in the past, CKD stage 2 presented with complaints of altered level of consciousness. Patient is a poor historian but history was obtained from the . As per patient was found to be confused sitting in the garage, patient did not have any head injury or lose consciousness, patient is currently denying any other complaints. On presenting to the ER patient was confused but later was improving and currently alert and oriented x1. As per family, patient has had a procedure done for carotid artery but did not remember what procedure Past medical history diabetes mellitus two, obstructive sleep apnea, [place], morbid obesity, hypertension, dyslipidemia, liver cirrhosis, hepatic encephalopathy in the past, alcohol use disorder in the past, SVT in the past, thrombocytopenia, COVID-19 in the past, CKD stage 2 Past surgical history No recent surgery Medication history Atorvastatin Lasix Lactulose Losartan Metformin Montelukast Zofran Protonix Paroxetine Solifenacin Social history Denied smoking, marijuana, alcohol, or any other drug intake Allergic history No known allergy Family history Noncontributory to the above illness Review of Systems Review of Systems Review of system could not be done as patient is confused Allergies: Coded Allergies: NO KNOWN ALLERGIES (Unverified , 03/10/20) Medications Current Medications Medications Dose Ordered Sig/Joyce Route Start Time Stop Time Status Last Admin Dose Admin Piperacillin Sod/ Tazobactam Sod 100 ml @ 25 mls/hr Q8HR IV 02/11/25 22:00 UNV Lactulose 30 ml Q6HR PO 02/12/25 00:00 UNV Exam Vital Signs Vital Signs Date Time Temp Pulse Resp B/P (MAP) Pulse Ox O2 Delivery O2 Flow Rate FiO2 02/11/25 19:30 100.0 80 20 119/69 (86) 98 100.0 02/11/25 16:23 Room Air* 0 21 Exam Examination General Appearance: Alert, Oriented X3, Cooperative, No acute distress HEENT: EOMI Respiratory: Clear to auscultation, Normal air movement Cardiovascular: Regular rate, Normal S1, Normal S2 Abdominal: Normal bowel sounds Extremities: No cyanosis, No edema, Normal pulses, No tenderness/swelling Skin: No rashes, No breakdown Neuro: No tremors no, asterixis, alert and oriented x1, confused, normal speech and tone Labs/Xrays Labs Test 02/11/25 18:47 02/11/25 16:18 Range/Units Lactic Acid Level 2.8 *H 0.4-2.0 mmol/L Troponin I High Sensitivity 77 *H </=54 ng/L White Blood Count 13.3 H 4.4-10.8 10^3/uL Red Blood Count 4.07 L 4.5-5.90 10^6/uL Hemoglobin 13.4 L 13.5-17.5 g/dL Hematocrit 39.4 L 41.0-53.0 % Mean Corpuscular Volume 96.9 80.0-100.0 fL Mean Corpuscular Hemoglobin 32.9 H 28.0-32.0 pg Mean Corpuscular Hemoglobin Concent 33.9 32.0-36.0 g/dL Red Cell Distribution Width 14.3 11.8-14.3 % Platelet Count 101 L 140-450 10^3/uL Mean Platelet Volume 12.0 H 6.9-10.8 fL Neutrophils (%) (Auto) 81.7 H 37.0-80.0 % Lymphocytes (%) (Auto) 5.9 L 10.0-50.0 % Monocytes (%) (Auto) 11.8 0.0-12.0 % Eosinophils (%) (Auto) 0.1 0.0-7.0 % Basophils (%) (Auto) 0.5 0.0-2.0 % Neutrophils # (Auto) 10.9 H 1.6-8.6 10 ^3/uL Lymphocytes # (Auto) 0.8 0.4-5.4 10 ^3/uL Monocytes # (Auto) 1.6 H 0-1.3 10 ^3/uL Eosinophils # (Auto) 0 0-0.8 10 ^3/uL Basophils # (Auto) 0.1 0-0.2 10 ^3/uL Nucleated Red Blood Cells 0.0 % Sodium Level 137 136-145 mmol/L Potassium Level 4.3 3.5-5.1 mmol/L Chloride Level 107 98-107 mmol/L Carbon Dioxide Level 17 L 20-31 mmol/L Anion Gap 13 5-15 Blood Urea Nitrogen 26 H 9-23 mg/dL Creatinine 1.42 H 0.700-1.30 mg/dL Glomerular Filtration Rate Calc 56 >90 mL/min BUN/Creatinine Ratio 18.3 10.0-20.0 Serum Glucose 103 74-106 mg/dL Calcium Level 8.5 L 8.7-10.4 mg/dL Magnesium Level 1.8 1.6-2.6 mg/dL Total Bilirubin 1.1 H 0.2-1.0 mg/dL Aspartate Amino Transferase (AST) 59 H 13-40 U/L Alanine Aminotransferase (ALT) 34 7-40 U/L Alkaline Phosphatase 124 H 46-116 U/L Ammonia 131 *H 11-32 umol/L B-Type Natriuretic Peptide 109.25 0-100 pg/mL Total Protein 6.8 5.7-8.2 g/dL Albumin 3.3 3.2-4.8 g/dL Lipase 41 12-53 U/L Plasma/Serum Blood Alcohol < 3.0 <10 mg/dL SEPSIS Sepsis Screen Date sepsis recognized/suspect: Feb 11, 2025 Time Sepsis recognized/suspect: 1601 Recent Procedure: No On Antibiotic Therapy: No Respiratory Rate >20: Yes Heart Rate >90: No Temp<36 C (96.8 F) or >38.3 C: No SBP <90 or MAP <65 mmHG: No New Acute Mental Status Change: No Is the patient on CPAP, BIPAP,: No Physician Orders Outsoles Channel Opener (02/11/25 ) Drug Screen (02/11/25 16:03) Urinalysis (02/11/25 16:03) Chest Portable (02/11/25 16:03) Head Without Contrast (02/11/25 16:03) Stroke Assessment (02/11/25 16:03) Neurological Assessment (02/11/25 16:03) Admit (02/11/25 19:39) Oxygen By Nasal Cannula (02/11/25 19:39) Stat Ekg For Chest Pain (02/11/25 19:39) Notify Of Changes From Base (02/11/25 19:39) Automobile Upholsterer For 24 Hours (02/11/25 19:39) Emergency Dysrhythmia Protocol (02/11/25 19:39) Rhythm Strips Once Every Shift (02/11/25 19:39) Piperacillin-Tazob 3.375gm (Zosyn 3.375g (02/11/25 19:45) Piperacillin-Tazob 3.375gm (Zosyn 3.375g (02/11/25 22:00) Urine Bacterial Culture (02/11/25 19:41) Blood Culture (02/11/25 19:41) Mrsa Screen (02/11/25 19:41) Lactulose Oral (02/12/25 00:00) Communication Order (02/11/25 19:47) Vital Signs Date Time Temp Pulse Resp B/P (MAP) Pulse Ox O2 Delivery O2 Flow Rate FiO2 02/11/25 19:30 100.0 80 20 119/69 (86) 98 100.0 02/11/25 16:45 96 02/11/25 16:23 99.2 93 21 108/47 (67) 95 99.2 02/11/25 16:23 93 21 95 Room Air* 0 21 02/11/25 15:58 98.2 97 24 116/67 94 98.2 Laboratory Tests Test 02/11/25 16:18 02/11/25 18:47 Lactic Acid Level 2.4 mmol/L (0.4-2.0) *H 2.8 mmol/L (0.4-2.0) *H White Blood Count 13.3 10^3/uL (4.4-10.8) H Medications Medications Dose Ordered Sig/Joyce Route Start Time Stop Time Status Last Admin Dose Admin Ceftriaxone Sodium 50 ml @ 100 mls/hr ONCE ONCE IV 02/11/25 17:30 02/11/25 17:59 DC 02/11/25 17:53 100 MLS/HR Lactulose 60 ml ONCE ONCE PO 02/11/25 17:00 02/11/25 17:01 DC 02/11/25 17:02 60 ML Assessment/Plan Assessment/Plan Assessment and Plan # ALOC due to hepatic/metabolic encephalopathy # hepatic encephalopathy current stage I, stage 3-4 on presentation # hyperammonemia due to liver cirrhosis # Sepsis, ? Source unknown as of now IV Zosyn Pancultures Lactulose Target 2-3 bowel movements in a day Liver ultrasound to check for ascites for ( ? SBP as possible source of infection) Stool occult occult blood test to rule out GI bleed Judicious use of diuretics # elevated lactic acid ? Sepsis ? Liver cirrhosis -monitor # anion gap metabolic acidosis due to lactic acidosis Monitor # NSTEMI likely type 2 due to sepsis Monitor # thrombocytopenia likely due to liver cirrhosis Monitor # decompensated liver cirrhosis Ultrasound to check for ascites # CKD [id number] Monitor kidney function # Diabetes mellitus 2 Sliding scale insulin #obstructive sleep apnea CPAP at night # history of SVT Monitor with telemetry # morbid obesity We will child welfare counselor for cessation once patient is alert # dyslipidemia Resume home meds # ? History of [place] EKG Trops Code status discussed with the patient and family for greater than 21 minutes Full code Case discussion with Dr. Valerio Plan discussed with: Other My Orders Orders - ROSETTE COLLINS Procedure Category Date Status Time Admit ADMIT 02/11/25 Transmitted 19:39 Oxygen By Nasal RT 02/11/25 Transmitted Cannula 19:39 Stat Ekg For Chest [facility] 02/11/25 In Process Pain 19:39 Notify Of Changes [facility] 02/11/25 In Process From Base 19:39 Automobile Upholsterer For [place] 02/11/25 In Process 24 Hours 19:39 Emergency Dysrhythmia [facility] 02/11/25 In Process Protocol 19:39 Rhythm Strips Once [facility] 02/11/25 In Process Every Shift 19:39 Piperacillin-Tazob PHA 02/11/25 In Process 3.375gm (Zosyn 3.375g 19:45 Piperacillin-Tazob PHA 02/11/25 Logged 3.375gm (Zosyn 3.375g 22:00 Urine Bacterial [facility] 02/11/25 Logged Culture 19:41 Blood Culture [facility] 02/11/25 Logged 19:41 Mrsa Screen [facility]ESA 02/11/25 Logged 19:41 Lactulose Oral PHA 02/12/25 Logged 00:00 Communication Order ORDERS 02/11/25 Transmitted 19:47 Visit Coding STANDARD RES Billing Provider: KRISTOFER VALERIO MD Date of Service if different f: Feb 11, 2025 Common Visit Codes: 12715-ELSWKYL INP/OBS CARE (HIGH) Secondary Visit Codes: 35998-ULPFLMMT CARE PLAN 30 MINUTES ROSETTE COLLINS Feb 11, 2025 20:01
[2025-02-11] MEDS: FUROSEMIDE 40 MG/4 ML VIAL IV ONE (20:09)
[2025-02-11] MEDS: PIPERACILLIN-TAZOB 3.375GM 100 ML IV ONE (20:11)
--- NOTE | 2025-02-11 21:19 | DVH ---
ULTRASOUND ABDOMEN, LIMITED RIGHT UPPER QUADRANT: REASON FOR EXAM: check for ascites TECHNIQUE: Real-time sector scans in the transverse and longitudinal planes were obtained through the right upper quadrant of the abdomen. FINDINGS: Examination was difficult due to patient body habitus and altered level of consciousness and inability to cooperate for the scan. The liver is borderline enlarged at 17.5 cm in length. The liver appears nodular, suggestive of cirrhosis. There is no intrahepatic biliary ductal dilatation. There is hepatopetal flow in the portal vein. The common bile duct is not seen. No gallstones or sludge are identified. There is no gallbladder wall thickening nor pericholecystic fluid. There is no sonographic Gómez's sign. The pancreas is obscured by bowel gas. The right kidney measures 11.7 cm. No hydronephrosis or nephrolithiasis is identified. There is no evidence of right renal mass or cyst. The visualized portions of the abdominal aorta demonstrate no evidence of aneurysmal dilatation. The visualized inferior vena cava is unremarkable. There is no free fluid identified in the right upper quadrant. IMPRESSION: Cirrhotic appearance of the liver. No ascites identified.
--- NOTE | 2025-02-11 21:36 | DVH ---
US CAROTID DUPLX W COLOR DOP HISTORY: aloc COMPARISON: None TECHNIQUE: Merchant-scale, Color and Duplex Doppler imaging of the bilateral carotid systems was performed. FINDINGS: Mild atherosclerotic plaque seen in the left distal common carotid artery. The following flow velocities were obtained: Right Carotid System: ICA PSV: 121 cm/sec ICA PDV: 19 cm/sec ICA/CCA Ratio: 1.1 Left Carotid System: ICA PSV: 78 cm/sec ICA PDV: 28 cm/sec ICA/CCA Ratio: 1.1 Bilateral common carotid, external carotid arteries, and vertebral arteries are patent. IMPRESSION: RIGHT ICA STENOSIS PER *SRU CRITERIA: NO SIGNIFICANT STENOSIS. LEFT ICA STENOSIS PER *SRU CRITERIA: NO SIGNIFICANT STENOSIS. Estimation of carotid stenosis is based on velocity parameters that correlate the residual internal carotid diameter with that of the more distal vessel in accordance with the [place] Symptomatic Carotid Endarterectomy Trial (NASCET)
[2025-02-11 21:53] LABS: Lactic Acid w/Reflex 2.7 mmol/L (0.4-2.0)
[2025-02-11] MEDS: SODIUM CHLORIDE 0.9% 250 ML IV ONE (22:10)
[2025-02-11 22:27] LABS: Urine Amorphous Crystal FEW /hpf (None Seen); Urine Protein, UAD Negative (Negative)
[2025-02-11 22:34] VITALS: BP 119/69; PULSE 80; O2SAT 98
[2025-02-11 22:44] LABS: Amphetamine Screen, Urine Neg (NEGATIVE); Barbiturate Scree,Urine Neg (NEGATIVE); Benzodiazephine Screen, Urine Neg (NEGATIVE); Cannabinoid Screen, Urine Neg (NEGATIVE); Cocaine Screen, Urine Neg (NEGATIVE); Opiate Scree,Urine Neg (NEGATIVE); Phencyclidine Screen, Urine Neg (NEGATIVE)
[2025-02-11 22:50] VITALS: BP 128/83; PULSE 74; RESP 20; TEMP 97.9; O2SAT 100
[2025-02-11 22:59] VITALS: PULSE 70
[2025-02-11 23:19] VITALS: PULSE 87; RESP 18; O2SAT 98
[2025-02-12] VITALS (9 sets, daily range): BP systolic 101–110; BP diastolic 58–70; PULSE 64–74; RESP 16–20; TEMP 97.5–98.4; O2SAT 93–99
[2025-02-12] MEDS: LACTULOSE 20Gm/30ML SOLN PO SCH (00:59)
[2025-02-12] MEDS: ATORVASTATIN 20 MG TAB PO SCH (00:59)
[2025-02-12] MEDS: ACCU-CHEK COMFORT CURVE STRIP VI SCH (01:00)
[2025-02-12] MEDS: InsuLIN REG 1unit/0.01ml Soln (100units/ml) SC SCH (01:09)
[2025-02-12] MEDS: PIPERACILLIN-TAZOB 3.375GM 100 ML IV SCH (05:40)
[2025-02-12] MEDS: PANTOPRAZOLE 40 MG TAB PO SCH (05:40)
[2025-02-12 07:02] LABS: Hematocrit 40.7 % (41.0-53.0); Hemoglobin 13.8 g/dL (13.5-17.5); Mean Corpuscular Hemoglobin 33.2 pg (28.0-32.0); Mean Corpuscular Volume 98.1 fL (80.0-100.0); Nucleated Red Blood Cells % 0.2 %
[2025-02-12 07:08] LABS: Alanine Aminotransferase 36 U/L (7-40); Albumin 3.2 g/dL (3.2-4.8); Anion Gap 13 (5-15); BUN/Creatinine Ratio 10.1 (10.0-20.0); Blood Urea Nitrogen 17 mg/dL (9-23); Calcium 9.0 mg/dL (8.7-10.4); Carbon Dioxide 21 mmol/L (20-31); Glucose 80 mg/dL (74-106); Magnesium 2.1 mg/dL (1.6-2.6); Potassium 3.8 mmol/L (3.5-5.1); Sodium 143 mmol/L (136-145); Total Protein 7.1 g/dL (5.7-8.2)
[2025-02-12 07:13] LABS: Alkaline Phosphatase 123 U/L (46-116); Bilirubin, Total 1.2 mg/dL (0.2-1.0); Chloride 109 mmol/L (98-107)
[2025-02-12 09:00] LABS: INR 1.19 (0.9-1.15); Partial Thromboplastin Time 29.1 SEC (24.5-34.5); Prothrombin Time 12.4 sec (9.3-11.8)
[2025-02-12 09:52] LABS: Lactic Acid w/Reflex 2.5 mmol/L (0.4-2.0)
[2025-02-12] MEDS ORDERED: FUROSEMIDE 40 MG TAB PO SCH (10:00)
[2025-02-12] MEDS: SODIUM CHLORIDE 0.9% 500 ML IV ONE (11:57)
--- NOTE | 2025-02-12 15:03 | DVHPNRES ---
Progress Note Date Seen: Feb 12, 2025 Resident Creating Document: TESS COBURN RESIDENT Medical Necessity Reason Pt with a Central, PICC or Fol: No Subjective Review of Systems 64-year-old male with past medical history of diabetes mellitus two, obstructive sleep apnea, [place], morbid obesity, hypertension, dyslipidemia, liver cirrhosis, hepatic encephalopathy in the past, alcohol use disorder in the past, SVT in the past, thrombocytopenia, COVID-19 in the past, CKD stage 2 presented with complaints of altered level of consciousness. Patient is a poor historian but history was obtained from the . As per patient was found to be confused sitting in the garage, patient did not have any head injury or lose consciousness, patient is currently denying any other complaints. On presenting to the ER patient was confused but later was improving and currently alert and oriented x1. As per family, patient has had a procedure done for carotid artery but did not remember what procedure. Surgical History: Denies Personal history: Denies smoking, drinking, drug use Family history: Reviewed, noncontributory lives with: Medication history: Atorvastatin, Lasix, lactulose, losartan, metformin, Zofran, Protonix, Paroxetine , Solifenacin, montelukast 02/12/2025: patient seen at bedside. Patient is A&O x1. Patient today complains of no acute symptoms. Patient did not have any bowel movements. Objective vital signs Vital Sign Date Time Temp Pulse Resp B/P (MAP) Pulse Ox O2 Delivery O2 Flow Rate FiO2 02/12/25 08:00 68 02/12/25 08:00 16 Room Air* 0 21 02/12/25 07:32 93 02/12/25 05:00 97.5 101/58 (72) 97.5 Total Intake and Output 02/11/25 02/11/25 02/12/25 15:00 23:00 07:00 Intake Total 400 ml 725 ml Balance 400 ml 725 ml medications Current Medications Medications Dose Ordered Sig/Joyce Route Start Time Stop Time Status Last Admin Dose Admin Lactulose 30 ml Q6HR PO 02/12/25 00:00 02/12/25 11:56 30 ML Diagnostic Test (Pha) 1 strip Q6HR 02/12/25 00:00 02/12/25 12:25 1 STRIP Insulin Human Regular Q6HR SC 02/12/25 00:00 02/12/25 01:09 2 UNITS Dextrose 50 ml UD PRN IV 02/11/25 20:00 Atorvastatin Calcium 20 mg HS PO 02/11/25 22:00 02/12/25 00:59 20 MG Pantoprazole Sodium 40 mg DAILY@0600 PO 02/12/25 06:00 02/12/25 05:40 40 MG Ceftriaxone Sodium 50 ml @ 100 mls/hr DAILY@09 IV 02/13/25 09:00 Examination General: A&O x1 HEENT: Normocephalic, atraumatic, moist mucous membranes Respiratory/pulmonary: Clear lungs bilaterally, vesicular murmurs present in almost all lung travis, no associated crackles or wheezes. Cardiovascular: Normal heart sounds S1 and S2 with no associated murmurs Abdomen: Abdomen nondistended, there is no pain to palpation in any of the abdominal quadrants, no palpable masses. obese abdomen Extremities: There is no peripheral edema present at the lower extremities. Peripheral Pulses: 3+ Radial (R). 3+ Radial (L). 3+ Dorsalis pedis (R). 3+ Dorsalis pedis(L) Skin: No rashes or pruritus, there is no sacral edema present at this time. Neurological: Intact cranial nerves with no focal neurologic deficits laboratory and microbiology Laboratory Tests 02/12/25 05:50 Test 02/12/25 05:50 Range/Units Serum Glucose 80 74-106 mg/dL Microbiology Date/Time Source Procedure Growth Status 02/12/25 06:09 Nose MRSA Screen - Final Complete 02/11/25 22:14 Voided Urine Urine Culture - Preliminary Resulted Problem List/Assessment/Plan Problem List/Assessment/Plan # ALOC due to hepatic/metabolic encephalopathy # hepatic encephalopathy # hyperammonemia due to liver cirrhosis # Sepsis likely due to UTI # decompensated liver cirrhosis IV Zosyn Pancultures Lactulose Target 2-3 bowel movements in a day Liver ultrasound showed Cirrhotic appearance of the liver. No ascites identified. Stool occult occult blood pending # anion gap metabolic acidosis due to lactic acidosis # lactic acidosis - monitor labs # NSTEMI likely type 2 due to sepsis Monitor tropes # thrombocytopenia likely due to liver cirrhosis Monitor labs # FARRAH on CKD Monitor kidney function # Diabetes mellitus 2 Sliding scale insulin #obstructive sleep apnea CPAP at night # history of SVT Monitor with telemetry # morbid obesity BMI 41.2 We will area counselor for cessation once patient is alert # dyslipidemia Resume home meds # ? History of [place] EKG Trops PPI prophylaxis: Protonix Goals of care addressed with the patient for more than 27 minutes: Full code status Case discussed with Dr. Valerio , patient and nurse Plan discussed with: Patient Visit Coding STANDARD RES Billing Provider: KRISTOFER VALERIO MD Date of Service if different f: Feb 12, 2025 Common Visit Codes: [id number] INP/OBS CARE(HIGH) TESS COBURN RESIDENT Feb 12, 2025 15:03
[2025-02-12] MEDS ORDERED: ONDANSETRON HCL 4 MG/2 ML VIAL IV PRN (15:30)
[2025-02-12] MEDS: SODIUM CHLORIDE 0.9% 1,000 ML IV ONE (15:49)
[2025-02-13] VITALS (10 sets, daily range): BP systolic 110–131; BP diastolic 66–89; PULSE 68–87; RESP 16–75; TEMP 98–99; O2SAT 95–99
[2025-02-13 06:14] LABS: Hematocrit 38.0 % (41.0-53.0); Hemoglobin 12.9 g/dL (13.5-17.5); Mean Corpuscular Hemoglobin 33.2 pg (28.0-32.0); Mean Corpuscular Volume 97.5 fL (80.0-100.0); Nucleated Red Blood Cells % 0.1 %
[2025-02-13 06:26] LABS: BUN/Creatinine Ratio 17.1 (10.0-20.0); Glucose 88 mg/dL (74-106)
[2025-02-13 06:27] LABS: Blood Urea Nitrogen 24 mg/dL (9-23); Calcium 8.3 mg/dL (8.7-10.4)
[2025-02-13 06:31] LABS: Potassium 4.0 mmol/L (3.5-5.1); Sodium 144 mmol/L (136-145)
[2025-02-13 06:32] LABS: Anion Gap 10 (5-15); Carbon Dioxide 23 mmol/L (20-31)
[2025-02-13 06:34] LABS: Chloride 111 mmol/L (98-107)
--- NOTE | 2025-02-13 07:59 | DVHPNRES ---
Progress Note Date Seen: Feb 13, 2025 Resident Creating Document: TESS COBURN RESIDENT Medical Necessity Reason Pt with a Central, PICC or Fol: No Subjective Review of Systems 64-year-old male with past medical history of diabetes mellitus two, obstructive sleep apnea, [place], morbid obesity, hypertension, dyslipidemia, liver cirrhosis, hepatic encephalopathy in the past, alcohol use disorder in the past, SVT in the past, thrombocytopenia, COVID-19 in the past, CKD stage 2 presented with complaints of altered level of consciousness. Patient is a poor historian but history was obtained from the . As per patient was found to be confused sitting in the garage, patient did not have any head injury or lose consciousness, patient is currently denying any other complaints. On presenting to the ER patient was confused but later was improving and currently alert and oriented x1. As per family, patient has had a procedure done for carotid artery but did not remember what procedure. Surgical History: Denies Personal history: Denies smoking, drinking, drug use Family history: Reviewed, noncontributory lives with: Medication history: Atorvastatin, Lasix, lactulose, losartan, metformin, Zofran, Protonix, Paroxetine , Solifenacin, montelukast 02/12/2025: patient seen at bedside. Patient is A&O x1. Patient today complains of no acute symptoms. Patient did not have any bowel movements. 02/13/25: Patient seen at bedside. Patient is A&O x1. Patient today no new complaints. Patient had 1 bowel movement today. Objective vital signs Vital Sign Date Time Temp Pulse Resp B/P (MAP) Pulse Ox O2 Delivery O2 Flow Rate FiO2 02/13/25 05:15 98.1 74 20 119/73 (88) 96 98.1 02/12/25 20:00 Room Air* 0 21 Total Intake and Output 02/12/25 02/12/25 02/13/25 15:00 23:00 07:00 Intake Total 575 ml 350 ml Output Total 650 ml 500 ml Balance -75 ml -150 ml medications Current Medications Medications Dose Ordered Sig/Joyce Route Start Time Stop Time Status Last Admin Dose Admin Lactulose 30 ml Q6HR PO 02/12/25 00:00 02/13/25 05:40 30 ML Pantoprazole Sodium 40 mg DAILY@0600 PO 02/12/25 06:00 02/13/25 05:40 40 MG Ceftriaxone Sodium 50 ml @ 100 mls/hr DAILY@09 IV 02/13/25 09:00 Ondansetron HCl 4 mg Q6HPRN PRN IV 02/12/25 15:30 Examination General: A&O x1 HEENT: Normocephalic, atraumatic, moist mucous membranes Respiratory/pulmonary: Clear lungs bilaterally, vesicular murmurs present in almost all lung travis, no associated crackles or wheezes. Cardiovascular: Normal heart sounds S1 and S2 with no associated murmurs Abdomen: Abdomen nondistended, there is no pain to palpation in any of the abdominal quadrants, no palpable masses. obese abdomen Extremities: There is no peripheral edema present at the lower extremities. Peripheral Pulses: 3+ Radial (R). 3+ Radial (L). 3+ Dorsalis pedis (R). 3+ Dorsalis pedis(L) Skin: No rashes or pruritus, there is no sacral edema present at this time. Neurological: Intact cranial nerves with no focal neurologic deficits laboratory and microbiology Laboratory Tests 02/13/25 05:27 Test 02/13/25 05:27 Range/Units Serum Glucose 88 74-106 mg/dL Microbiology Date/Time Source Procedure Growth Status 02/12/25 06:09 Nose MRSA Screen - Final Complete 02/11/25 22:14 Voided Urine Urine Culture - Preliminary Resulted 02/11/25 20:00 Blood Blood Culture - Preliminary NO GROWTH AFTER 24 HOURS OF INCUBATION. Resulted Problem List/Assessment/Plan Problem List/Assessment/Plan # ALOC due to hepatic/metabolic encephalopathy # hepatic encephalopathy # hyperammonemia due to liver cirrhosis # Sepsis likely due to UTI # decompensated liver cirrhosis IV Zosyn Pancultures Lactulose Target 2-3 bowel movements in a day Liver ultrasound showed Cirrhotic appearance of the liver. No ascites identified. Stool occult occult blood pending # anion gap metabolic acidosis due to lactic acidosis # lactic acidosis - monitor labs # NSTEMI likely type 2 due to sepsis Monitor tropes # thrombocytopenia likely due to liver cirrhosis Monitor labs # FARRAH on CKD Monitor kidney function # Diabetes mellitus 2 Sliding scale insulin #obstructive sleep apnea CPAP at night # history of SVT Monitor with telemetry # morbid obesity BMI 41.2 We will pediatric genetic counselor for cessation once patient is alert # dyslipidemia Resume home meds # ? History of [place] EKG Trops PPI prophylaxis: Protonix Goals of care addressed with the patient for more than 27 minutes: Full code status Case discussed with Dr. Armando , patient and nurse Plan discussed with: Patient Visit Coding STANDARD RES Billing Provider: LISA ARMANDO MD Date of Service if different f: Feb 13, 2025 Common Visit Codes: [id number] INP/OBS CARE(HIGH) TESS COBURN RESIDENT Feb 13, 2025 07:59 LISA ARMANDO MD Feb 14, 2025 00:22
[2025-02-13 10:51] LABS: Alanine Aminotransferase 29.0 U/L (7-40); Alkaline Phosphatase 103.0 U/L (46-116); Total Protein 6.5 g/dL (5.7-8.2)
[2025-02-13 10:52] LABS: Albumin 3.0 g/dL (3.2-4.8); Bilirubin, Direct 0.3 mg/dL (<0.3); Bilirubin, Total 0.7 mg/dL (0.2-1.0)
[2025-02-14 01:00] VITALS: BP 122/60; PULSE 84; RESP 20; TEMP 98.7; O2SAT 98
[2025-02-14] MEDS ORDERED: MORPHINE SULFATE INJ 2 MG/ml SYRG IV ONE (01:00)
[2025-02-14] MEDS: MORPHINE SULFATE 4 MG/ML SYR/VIAL IV ONE (01:10)
[2025-02-14 05:00] VITALS: BP 124/77; PULSE 75; RESP 17; TEMP 98.2; O2SAT 96
[2025-02-14 08:00] VITALS: RESP 17
[2025-02-14 08:53] LABS: Hematocrit 40.5 % (41.0-53.0); Hemoglobin 13.8 g/dL (13.5-17.5); Mean Corpuscular Hemoglobin 33.6 pg (28.0-32.0); Mean Corpuscular Volume 98.6 fL (80.0-100.0); Nucleated Red Blood Cells % 0.2 %
[2025-02-14 08:56] LABS: Anion Gap 10 (5-15); Carbon Dioxide 23 mmol/L (20-31); Potassium 4.1 mmol/L (3.5-5.1); Sodium 143 mmol/L (136-145)
[2025-02-14 08:58] VITALS: BP 135/93; PULSE 71; RESP 20; TEMP 99; O2SAT 96
[2025-02-14 09:02] LABS: BUN/Creatinine Ratio 11.8 (10.0-20.0); Blood Urea Nitrogen 16 mg/dL (9-23); Calcium 8.6 mg/dL (8.7-10.4); Chloride 110 mmol/L (98-107); Glucose 84 mg/dL (74-106)
[2025-02-14 13:00] VITALS: BP 134/80; PULSE 73; RESP 18; TEMP 98.5; O2SAT 97
[2025-02-14] MEDS: SODIUM CHLORIDE 0.9% 250 ML IV ONE (13:00)
[2025-02-14] MEDS ORDERED: LACT10SO3 PO ×2 (13:07→16:39)
[2025-02-14] MEDS ORDERED: FURO1TAB31 PO (16:39)
[2025-02-14] MEDS ORDERED: LOSA-533 PO (16:39)
[2025-02-14] MEDS ORDERED: LEVO500T91 PO (17:39)
--- NOTE | 2025-02-14 17:40 | DVHDSRES ---
Discharge Summary Date of Admission Resident Creating Document: TIM PATEL RESIDENT Feb 11, 2025 at 19:39 Date of Discharge: Feb 14, 2025 Admitting Diagnosis # ALOC due to hepatic/metabolic encephalopathy # hepatic encephalopathy current stage I, stage 3-4 on presentation # hyperammonemia due to liver cirrhosis # Sepsis, ? Source unknown as of now # elevated lactic acid ? Sepsis ? Liver cirrhosis # anion gap metabolic acidosis due to lactic acidosis # NSTEMI likely type 2 due to sepsis # thrombocytopenia likely due to liver cirrhosis # decompensated liver cirrhosis # CKD [id number] # Diabetes mellitus 2 #obstructive sleep apnea # history of SVT # morbid obesity # dyslipidemia # ?History of [place] Wounds: none Labs/Diagnostic Data: Laboratory Results Test 02/14/25 07:39 02/14/25 02:25 02/13/25 12:08 02/13/25 05:27 White Blood Count 5.0 10^3/uL (4.4-10.8) Red Blood Count 4.10 10^6/uL (4.5-5.90) Hemoglobin 13.8 g/dL (13.5-17.5) Hematocrit 40.5 % (41.0-53.0) Mean Corpuscular Volume 98.6 fL (80.0-100.0) Mean Corpuscular Hemoglobin 33.6 pg (28.0-32.0) Mean Corpuscular Hemoglobin Concent 34.1 g/dL (32.0-36.0) Red Cell Distribution Width 14.7 % (11.8-14.3) Platelet Count 111 10^3/uL (140-450) Mean Platelet Volume 11.6 fL (6.9-10.8) Neutrophils (%) (Auto) 46.4 % (37.0-80.0) Lymphocytes (%) (Auto) 32.6 % (10.0-50.0) Monocytes (%) (Auto) 13.0 % (0.0-12.0) Eosinophils (%) (Auto) 5.8 % (0.0-7.0) Basophils (%) (Auto) 2.2 % (0.0-2.0) Neutrophils # (Auto) 2.3 10 ^3/uL (1.6-8.6) Lymphocytes # (Auto) 1.6 10 ^3/uL (0.4-5.4) Monocytes # (Auto) 0.6 10 ^3/uL (0-1.3) Eosinophils # (Auto) 0.3 10 ^3/uL (0-0.8) Basophils # (Auto) 0.1 10 ^3/uL (0-0.2) Nucleated Red Blood Cells 0.2 % Sodium Level 143 mmol/L (136-145) Potassium Level 4.1 mmol/L (3.5-5.1) Chloride Level 110 mmol/L (98-107) Carbon Dioxide Level 23 mmol/L (20-31) Anion Gap 10 (5-15) Blood Urea Nitrogen 16 mg/dL (9-23) Creatinine 1.36 mg/dL (0.700-1.30) Glomerular Filtration Rate Calc 59 mL/min (>90) BUN/Creatinine Ratio 11.8 (10.0-20.0) Serum Glucose 84 mg/dL (74-106) Calcium Level 8.6 mg/dL (8.7-10.4) Stool Occult Blood Negative (Negative) Stool Occult Blood Sample #3 (Negative) Ammonia 41 umol/L (11-32) Total Bilirubin 0.7 mg/dL (0.2-1.0) Direct Bilirubin 0.3 mg/dL (<0.3) Aspartate Amino Transferase (AST) 50 U/L (13-40) Alanine Aminotransferase (ALT) 29 U/L (7-40) Alkaline Phosphatase 103 U/L (46-116) Total Protein 6.5 g/dL (5.7-8.2) Albumin 3.0 g/dL (3.2-4.8) Test 02/12/25 12:22 02/12/25 08:41 02/12/25 05:50 02/12/25 00:23 POC Glucose 95 mg/dl (70-106) Lactic Acid Level 2.5 mmol/L (0.4-2.0) Prothrombin Time 12.4 sec (9.3-11.8) Prothrombin Time INR 1.19 (0.9-1.15) Activated Partial Thromboplast Time 29.1 SEC (24.5-34.5) Magnesium Level 2.1 mg/dL (1.6-2.6) Troponin I High Sensitivity 58 ng/L (</=54) Test 02/11/25 22:14 02/11/25 16:18 Urine Color Colorless (Yellow) Urine Clarity Turbid (Clear) Urine pH 6.0 (5.0-9.0) Urine Specific [place] 1.007 (1.001-1.035) Urine Protein Negative (Negative) Urine Ketones Negative (Negative) Urine Blood Trace /uL (Negative) Urine Nitrite Negative (Negative) Urine Bilirubin Negative (Negative) Urine Urobilinogen Normal mg/dL (Negative) Urine Leukocyte Esterase 1+ /uL (Negative) Urine RBC 1 /hpf (0 - 3) Urine Microscopic WBC 12 /HPF (0-3) Urine Squamous Epithelial Cells Few /hpf (<5) Urine Amorphous Crystals Few /hpf (None Seen) Urine Bacteria Few /hpf (None Seen) Urine Glucose Normal mg/dL (Normal) Urine Opiates Screen Neg (NEGATIVE) Urine Fentanyl Screen Neg (NEGATIVE) Urine Barbiturates Screen Neg (NEGATIVE) Urine Phencyclidine Screen Neg (NEGATIVE) Urine Amphetamines Screen Neg (NEGATIVE) Urine Benzodiazepines Screen Neg (NEGATIVE) Urine Cocaine Screen Neg (NEGATIVE) Urine Cannabinoids Screen Neg (NEGATIVE) B-Type Natriuretic Peptide 109.25 pg/mL (0-100) Lipase 41 U/L (12-53) Plasma/Serum Blood Alcohol < 3.0 mg/dL (<10) Other Laboratory Tests 02/14/25 07:39 Brief Hx & Hospital Course: Patient is a 64-year-old male with a history of alcoholic liver cirrhosis was brought to the hospital with a chief complaint of altered level of consciousness. Patient was seen to be A&O x1, ammonia level was elevated following which aggressive bowel regimen with lactulose was started. Urine analysis showed UTI for which the patient was treated with IV antibiotics. Over the course of hospital stay patient's cognition improved and he had regular bowel movements. Patient denied any abdominal pain, chest pain, shortness of breath. Physical therapy evaluation was done. Patient was discharged home in stable condition advised to follow up in the discharge clinic and with the PCP in 1-2 weeks. Patient was discharged on lactulose 30 mL 4 times daily and patient's was advised to titrate the lactulose so that the patient has a at least 2 bowel movements per day. Consults/Reason for consult none Operations or Procedures none Condition at Discharge: Good Final Diagnosis/Problems List ACUTE METABOLIC ENCEPHALOPATHY FROM HEPATIC ENCEPHALOPATHY LIVER CIRRHOSIS SEPSIS LIKELY D/T UTI NSTEMI TYPE 2 Discharge Disposition: Home Discharge Instruct/Medications Diet: See Comment Diet comment: AVOID EXCESS RED MEAT AND CHEESE TO PREVENT CONSTIPATION Activity: No Restrictions, As Tolerated Follow Up/Referral: F/up in the d/c clinic in one week F/up with the PCP in 1-2 weeks Medications: as per EMR Scheduled Atorvastatin Calcium (Lipitor), 1 TAB PO DAILY, (Reported) Furosemide (Furosemide), 1 TAB PO DAILY, (Reported) Furosemide (Lasix), 40 MG PO DAILY Lactulose (Lactulose), 30 ML PO Q6HR Lactulose (Lactulose), 30 ML PO QID Levofloxacin Hemihydrate (Levofloxacin), 500 MG PO DAILY Losartan Potassium (Cozaar), 1 TAB PO DAILY, (Reported) Losartan Potassium (Losartan Potassium), 1 TAB PO DAILY Paroxetine (Paxil Tablet), 40 MG PO DAILY Solifenacin Succinate (Solifenacin Succinate), 1 TAB PO DAILY, (Reported) Discontinued Medications Atorvastatin Calcium (Lipitor), 1 TAB PO DAILY, (Reported) Cephalexin (Keflex Capsule), 1 CAP PO QID Dicyclomine Hcl (Bentyl Capsule), 1 CAP PO TID Lactulose (Lactulose), 10 GM PO BID Losartan Potassium (Losartan Potassium), 1 TAB PO DAILY, (Reported) Metformin Hydrochloride (Metformin Hcl), 500 MG PO DAILY, (Reported) Metformin Hydrochloride (Metformin Hcl), 1 TAB PO QAM, (Reported) Metoprolol Tartrate (Lopressor), 25 MG PO Q12HR, (Reported) Montelukast Sodium (Montelukast Sodium), 1 TAB PO DAILY, (Reported) Nitroglycerin (Nitrostat), 0.4 MG SL BIDP PRN Ondansetron Odt 4MG Tab (Zofran Po), 4 MG PO TID Pantoprazole Sodium Sesquihydr (Protonix), 40 MG PO DAILY, (Reported) Pantoprazole Sodium Sesquihydr (Protonix), 1 TAB PO DAILY, (Reported) Discharge Statement: "Patient was advised to return to the ER or call 911 if any headaches, dizziness, shortness of breath, chest pain, abdominal pain, bleeding, fevers, or worsening of medical condition. Patient was counseled about treatment plan, medications, possible side effects, patientverbalized understanding. All questions were answered to the best of my ability. This discharge took greater then 30 minutes in planning, reviewing documentation, counseling the patient, and discussing with other team members." ASSESSMENT ASSESSMENT Assessment ACUTE METABOLIC ENCEPHALOPATHY FROM HEPATIC ENCEPHALOPATHY LIVER CIRRHOSIS SEPSIS LIKELY D/T UTI NSTEMI TYPE 2 Visit Coding STANDARD RES Billing Provider: LISA HAILE MD Date of Service if different f: Feb 14, 2025 Common Visit Codes: [id number] DISCH DAY >30min TIM PATEL RESIDENT Feb 14, 2025 17:40 LISA HAILE MD Feb 14, 2025 19:35
== END 2025-02-14 16:59 | disposition home or self-care (01) | DRG 871 ==
LOC: ER 15:56 → EDBD 15:56 → OVERFLOW 19:39 → TELE-WESTW 22:43 → WEST WING 02-13 04:20
PROVIDERS: ADMIT Student in an Organized Health Care Education/Training Program; ATTEND Student in an Organized Health Care Education/Training Program
PROC: 5A09357 Assistance with Respiratory Ventilation, Less than 24 Consecutive Hours, Continuous Positive Airway Pressure (ICD-10-PCS; principal; 2025-02-13)
DX: A41.9 Sepsis, unspecified organism (principal); G93.41 Metabolic encephalopathy; I21.A1 Myocardial infarction type 2; E72.4 Disorders of ornithine metabolism; E87.20 Acidosis, unspecified; N39.0 Urinary tract infection, site not specified; D69.6 Thrombocytopenia, unspecified; K76.82 Hepatic encephalopathy; E66.01 Morbid (severe) obesity due to excess calories; I12.9 Hypertensive chronic kidney disease with stage 1 through stage 4 chronic kidney disease, or unspecified chronic kidney disease; E11.22 Type 2 diabetes mellitus with diabetic chronic kidney disease; Z68.41 Body mass index [BMI] 40.0-44.9, adult; N18.2 Chronic kidney disease, stage 2 (mild); E78.5 Hyperlipidemia, unspecified; K74.60 Unspecified cirrhosis of liver; G47.33 Obstructive sleep apnea (adult) (pediatric); Z79.899 Other long term (current) drug therapy; I25.2 Old myocardial infarction; Z86.16 Personal history of COVID-19; Z79.84 Long term (current) use of oral hypoglycemic drugs
CPT/HCPCS: 36415; 70450; 71045; 76705; 80048; 80053; 80076; 80307; 80320; 81001; 82140; 82270; 82962; 83605; 83690; 83735; 83880; 84484; 85025; 85610; 85730; 87040; 87081; 87086; 93005; 93886; 94003; 94660; 97163; G0378; J1815; J2543